=== PATIENT | female | born 1945 | race Caucasian/White ===

== ENCOUNTER 2018-01-11 20:35 | Observation (INO) | payer MEDICARE ==
[2018-01-11 21:03] LABS: Bilirubin Negative (Negative); Blood, Urine Negative (Negative); Clarity CLEAR (Clear); Glucose, Urine (Dipstick) >=1000 mg/dL (Negative); Leukocyte Negative (Negative); Nitrite Positive (Negative); Protein, Urine (Dipstick) Negative (Neg-Trace); Specific Gravity, Urine 1.028 (1.002-1.036); Urobilinogen 0.2 mg/dL (0.2-1.0); pH, Urine 5.5 (5.0-9.0)
[2018-01-11 21:06] LABS: Bacteria/HPF 3+ HPF (None Seen); Hyaline Casts/LPF 0-3 HYALINE CAST LPF (0-3 Hyaline); Pathc Cast-AUWi Flag 0.43 (0-2.49); RBC/HPF None Seen HPF (0-3); Squamous Epithelial 0-3 HPF (0-3); WBC/HPF 0-3 HPF (0-3)
[2018-01-11 22:19] LABS: #Eosinphils 0.2 thou/uL (0.0-0.7); #Lymphocytes 0.6 thou/uL (1.20-3.40); #Monocytes 0.7 thou/uL (0.11-0.59); #Neutrophils 8.6 thou/uL (1.40-6.50); %Basophils 0.3 % (0.0-1.0); %Eosinophils 1.6 % (0.0-10.0); %Lymphocytes 5.5 % (21.0-51.0); %Monocytes 7.2 % (0.0-10.0); %Neutrophils 85.5 % (42.0-75.0); Hemoglobin 13.6 g/dL (12.0-16.0); Mean Corpuscular HGB CONC 34.6 g/dL (32.0-36.0); Mean Corpuscular Hemoglobin 29.6 pg (27.0-31.0); Mean Corpuscular Volume 85.7 fL (78.0-98.0); Mean Platelet Volume 7.7 fL (7.4-10.4); Platelet Count 161 thou/uL (130-400); RBC Distribution Width 12.5 % (11.5-14.5); Red Blood Cell (RBC) Count 4.57 mill/uL (4.20-5.40)
[2018-01-11 22:34] LABS: ALT (SGPT) 25 U/L (8-55); AST (SGOT) 27 U/L (5-34); Alkaline Phosphatase 92 U/L (40-150); Anion Gap 14 mmol/L (10-20); BUN (Urea Nitrogen) 15 mg/dL (9.8-20.1); Bilirubin, Total 0.4 mg/dL (0.2-1.2); Calc. Creatinine Clearance 0 mL/min (70-130); Calcium 9.3 mg/dL (7.8-10.44); Carbon Dioxide 22 mmol/L (23-31); Chloride 110 mmol/L (98-107); Estimated GFR-MDRD 71; Globulin 2.4 g/dL (2.4-3.5); Glucose 130 mg/dL (83-110); Potassium 3.9 mmol/L (3.5-5.1); Protein, Total 6.4 g/dL (6.0-8.3); Sodium 142 mmol/L (136-145)
[2018-01-11 22:39] LABS: CKMB 6.5 ng/mL (0-6.6); Troponin I Less than 0.010 ng/mL (< 0.028)
--- NOTE | 2018-01-11 22:41 | RAD ---
PORTABLE AP CHEST X-RAY: 01/11/18 HISTORY: Chest pain. COMPARISON: 09/02/17. FINDINGS: Multilead right subclavian AICD device remains in place. Cardiac silhouette is magnified by projectio n but stable in size. The pulmonary vasculature is within normal limits. Lungs are clear. Vascular ca lcifications are seen in the thoracic aorta. 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 This is a stable finding. No other interval change. IMPRESSION: Stable chest without evidence of an acute cardiopulmonary process. POS: [facility]
[2018-01-11] MEDS ORDERED: Meropenem 2 GM in Sodium Chloride 0.9% 100 ML IVPB SCH (23:00)
[2018-01-12 00:48] LABS: Troponin I Less than 0.010 ng/mL (< 0.028)
[2018-01-12 00:56] VITALS: BMI 27.2
[2018-01-12] MEDS ORDERED: Nitroglycerin 0.4 MG TAB (25 Tab Bottle) SL PRN (01:03)
[2018-01-12] MEDS ORDERED: Mag-Al 1200 mg/1200 mg/30 ML UDCUP PO PRN (01:03)
[2018-01-12] MEDS: traMADol HCl 50 MG TAB PO PRN ×2 (01:40→09:08)
[2018-01-12 02:39] LABS: Lactic Acid 2.5 mmol/L (0.5-2.2)
[2018-01-12 03:33] LABS: Troponin I Less than 0.010 ng/mL (< 0.028)
[2018-01-12] MEDS: TROSPIUM 20 MG TABLET PO SCH ×2 (08:25→20:19)
[2018-01-12] MEDS: Meropenem 500 MG in Sodium Chloride 0.9% 100 ML IVPB SCH ×2 (08:26→15:49)
[2018-01-12] MEDS ORDERED: Pramipexole Di-HCl 1 MG TAB PO SCH (09:00)
[2018-01-12] MEDS ORDERED: Aspirin 81 mg Enteric Coated Tablet PO SCH (09:00)
[2018-01-12] MEDS ORDERED: Clopidogrel Bisulfate 75 MG TAB PO SCH (09:00)
[2018-01-12] MEDS ORDERED: busPIRone HCl 5 MG TAB PO SCH (09:00)
[2018-01-12] MEDS ORDERED: Gabapentin 300 MG CAP PO SCH (10:15)
[2018-01-12] MEDS: busPIRone HCl 10 MG TAB PO SCH ×2 (15:45→20:17)
--- NOTE | 2018-01-12 17:57 | HP ---
REASON FOR ADMISSION: Altered mental state, generalized aches and pain. HISTORY OF PRESENTING ILLNESS: The patient apparently was brought to emergency room after she was not herself at home. She was also complaining of shortness of breath with generalized body aches. She also had chest discomfort which was worse on palpation. The patient currently is oriented and complains of generalized body ache. She also states her urine smell odor was horrible. She has also been having increased frequency. Currently, he has no complaints of chest pain, but still has generalized aches and pains. The patient states this is normal for her and she takes gabapentin for it. It is just that the pains were worse and denies having taken any extra pills for the pain. No fever, cough, or expectoration at home. No complaints of palpitations, PND or orthopnea. PAST MEDICAL AND SURGICAL HISTORY: History of chronic pain syndrome, history of left brain benign tumor, anxiety disorder, depression, history of DVT in the lower extremities, nonischemic cardiomyopathy, AICD, IVC filter, hysterectomy, bilateral knee replacements, right hip replacement, right internal carotid artery, moderate stenosis, history of CVA with right hemiparesis, peripheral vascular disease, history of prior GI bleed, and colonoscopy. CURRENT MEDICATIONS: The patient is on Keppra 750 mg twice daily, Ultram p.r.n. for pain, gabapentin 600 mg daily, tolterodine 4 mg daily, Plavix 75 mg daily, Lasix 40 mg daily, Myrbetriq 25 mg daily, buspirone 15 mg 3 times daily, celecoxib 200 mg twice daily, rabeprazole 20 mg twice daily, pramipexole 1 mg twice daily, atorvastatin 20 mg p.o. q.p.m., aspirin 81 mg p.o. daily, K-Dur 10 mEq p.o. daily, Tylenol 650 mg twice daily. ALLERGIES: Patient has multiple allergies including SULFA, CLINDAMYCIN, NORCO, HYDROMORPHONE, LYRICA, MORPHINE, NALBUPHINE, [place], PENICILLIN, LYRICA, QUININE , SHELLFISH, SULFA. PERSONAL HISTORY: Does not abuse alcohol or drugs. No history of smoking. She ambulates with a walker. FAMILY HISTORY: Mother at the age of 97 years. Father of old age at the age of 85 years. REVIEW OF SYSTEMS: The following complete review of systems was negative, unless otherwise mentioned in the HPI or below: Constitutional: Weight loss or gain, ability to conduct usual activities. Skin: Rash, itching. Eyes: Double vision, pain. ENT/Mouth: Nose bleeding, neck stiffness, pain, tenderness. Cardiovascular: Palpitations, dyspnea on exertion, orthopnea. Respiratory: Shortness of breath, wheezing, cough, hemoptysis, fever or night sweats. Gastrointestinal: Poor appetite, abdominal pain, heartburn, nausea, vomiting, constipation, or diarrhea. Genitourinary: Urgency, frequency, dysuria, nocturia. Musculoskeletal: Pain, swelling. Neurologic/Psychiatric: Anxiety, depression. Allergy/Immunologic: Skin rash, bleeding tendency. CODE STATUS: DNR. This was discussed with patient at bedside. PHYSICAL EXAMINATION: GENERAL: The patient is a 72-year-old female who is currently not in any distress except for aches and pains. VITAL SIGNS: Blood pressure 170/76, pulse 78 per minute, respiratory rate 18 per minute, temperature 98.4 degrees Fahrenheit, saturating 96% on room air. NECK: Supple, no elevated JVD. HEENT: Eyes: Extraocular muscles intact. Pupils reacting to light. Oral cavity mucous membranes are moist. No exudates or congestion. CARDIOVASCULAR: S1 and S2 heard. Regular rhythm. RESPIRATORY: Air entry 1+ bilaterally. No rales or rhonchi. ABDOMEN: Soft, bowel sounds heard. No tenderness, rigidity or guarding. EXTREMITIES: No peripheral edema or calf tenderness. VASCULAR SYSTEM: Peripheral pulses 1+ bilateral, no ischemic ulcerations or gangrene. CENTRAL NERVOUS SYSTEM: No gross focal deficits noted. The patient moves all 4 extremities. PSYCHIATRIC: The patient is a bit anxious, otherwise no hallucinations or delusions. LABORATORY AND X-RAY FINDINGS: Echo done in 07/2016 was reviewed and showed an EF of 50%-55%. There was grade I/III diastolic dysfunction, RV systolic pressures were 41 mm on that. White count of 10, H&H 13 and 39, platelet count 161 with 85% neutrophils. Serum bicarbonate 22. Sodium 142, BUN 15, creatinine 0.7, glucose 130. Troponin x3 is negative. Liver enzymes are within normal limits. Albumin is 4. Chest x-ray done shows no acute cardiopulmonary process. UA is positive for nitrite with 3+ bacteria. CLINICAL IMPRESSION AND PLAN: The patient will be admitted to medical floor for acute encephalopathy, urinary tract infection, generalized body aches and pain. The patient has known history of chronic pain syndrome and is on multiple medications for the same. She also has restless leg syndrome, fibromyalgia and history of seizure disorder as well. We will continue all her home medication as before. The patient has been started on meropenem and will continue the same. We will obtain urine cultures and follow up on that. She is otherwise hemodynamically stable at present. PT, OT evaluations will be requested as well and the plan is for early mobilization. [facility]
[2018-01-12] MEDS: Acetaminophen 325 MG TAB PO SCH (20:18)
[2018-01-12] MEDS: levETIRAcetam 500 MG TAB PO SCH (20:18)
[2018-01-12] MEDS: Pramipexole Di-HCl 1 MG TAB PO SCH (20:19)
[2018-01-12] MEDS: CeleCOXIB 100 MG CAP PO SCH (20:19)
[2018-01-12] MEDS ORDERED: Tolterodine Tartrate LA 2 MG CAP PO SCH (21:00)
[2018-01-13] MEDS: Meropenem 500 MG in Sodium Chloride 0.9% 100 ML IVPB SCH ×3 (00:24→16:22)
[2018-01-13] MEDS: traMADol HCl 50 MG TAB PO PRN (00:27)
[2018-01-13] MEDS: Acetaminophen 325 MG TAB PO SCH ×2 (08:33→21:46)
[2018-01-13] MEDS: Atorvastatin Calcium 20 MG TAB PO SCH (08:33)
[2018-01-13] MEDS: busPIRone HCl 10 MG TAB PO SCH ×3 (08:33→21:46)
[2018-01-13] MEDS: Aspirin 81 mg Enteric Coated Tablet PO SCH (08:33)
[2018-01-13] MEDS: Clopidogrel Bisulfate 75 MG TAB PO SCH (08:33)
[2018-01-13] MEDS: CeleCOXIB 100 MG CAP PO SCH ×2 (08:34→21:00)
[2018-01-13] MEDS: Gabapentin 300 MG CAP PO SCH (08:34)
[2018-01-13] MEDS: levETIRAcetam 500 MG TAB PO SCH ×2 (08:35→21:48)
[2018-01-13] MEDS: Pramipexole Di-HCl 1 MG TAB PO SCH ×2 (08:36→21:49)
[2018-01-13] MEDS: TROSPIUM 20 MG TABLET PO SCH ×2 (08:36→21:49)
[2018-01-13] MEDS: Potassium Chloride 10 MEQ TAB PO SCH (08:36)
[2018-01-13] MEDS ORDERED: Tolterodine Tartrate LA 4 MG CAP PO SCH (09:00)
[2018-01-13] MEDS ORDERED: Furosemide 40 MG TAB PO SCH (09:00)
--- NOTE | 2018-01-13 11:30 | PDOC.PN ---
- Subjective Encounter Start Date: 01/13/18 Encounter Start Time: 08:15 Subjective: no sob or chest pain or body aches this am -: feels better, slept well, ate her breakfast - Objective MAR Reviewed: Yes Vital Signs & Weight: Vital Signs (12 hours) Temp Pulse Resp BP Pulse Ox 01/13/18 08:00 97.6 F 70 18 137/77 92 L 01/13/18 04:44 97.7 F 75 18 116/72 92 L Weight Weight 168 lb 12.8 oz I&O: 01/12/18 01/13/18 01/14/18 06:59 06:59 06:59 Intake Total 360 Balance 360 Result Diagrams: 01/11/18 21:02 01/11/18 21:02 Phys Exam - Physical Examination HEENT: PERRLA, moist MMs Neck: no JVD, supple Respiratory: no wheezing, no rales Cardiovascular: RRR, no significant murmur Gastrointestinal: soft, non-tender, positive bowel sounds Musculoskeletal: no edema, pulses present Neurological: non-focal, moves all 4 limbs Psychiatric: normal affect, A&O x 3 Dx/Plan (1) UTI (urinary tract infection) Status: Acute Qualifiers: Urinary tract infection type: acute cystitis Hematuria presence: without hematuria Qualified Code(s): N30.00 - Acute cystitis without hematuria (2) Chronic pain syndrome Code(s): G89.4 - CHRONIC PAIN SYNDROME Status: Chronic (3) Anxiety and depression Code(s): F41.9 - ANXIETY DISORDER, UNSPECIFIED; F32.9 - MAJOR DEPRESSIVE DISORDER, SINGLE EPISODE, UNSPECIFIED Status: Chronic (4) Coronary artery disease Code(s): I25.10 - ATHSCL HEART DISEASE OF [place] CORONARY ARTERY W/O ANG PCTRS Status: Chronic Qualifiers: Coronary Disease-Associated Artery/Lesion type: [place] artery [place] vs. transplanted heart: [place] heart Associated angina: without angina Qualified Code(s): I25.10 - Atherosclerotic heart disease of [place] coronary artery without angina pectoris (5) History of CVA with residual deficit Code(s): I69.30 - UNSPECIFIED SEQUELAE OF CEREBRAL INFARCTION Status: Chronic Comment: right hemiparesis (6) Hypertension Code(s): I10 - ESSENTIAL (PRIMARY) HYPERTENSION Status: Chronic Qualifiers: Hypertension type: essential hypertension (7) Microcytic anemia Code(s): D50.9 - IRON DEFICIENCY ANEMIA, UNSPECIFIED Status: Chronic (8) Metabolic encephalopathy Code(s): G93.41 - METABOLIC ENCEPHALOPATHY Status: Resolved Comment: at baseline - Plan await urine culture results -: continue meropenem for now until above is available -: non specific body aches are resolved -: to ambulate with PT and rw today -: dc plan in am * . Review of Systems - Medications/Allergies Allergies/Adverse Reactions: Allergies Allergy/AdvReac Type Severity Reaction Status Date / Time hydromorphone HCl Allergy Intermediate Rash Verified 03/31/16 17:03 [From Dilaudid] clindamycin Allergy Rash Verified 03/31/16 17:03 morphine Allergy Hives Verified 03/31/16 17:03 nalbuphine HCl [From Nubain] Allergy Rash Verified 03/31/16 17:03 penicillin G Allergy Hives Verified 03/31/16 17:03 pregabalin [From Lyrica] Allergy Rash Verified 03/31/16 17:03 quinine [Quinine] Allergy Rash Verified 03/31/16 17:03 sulfamethoxazole Allergy Rash Verified 03/31/16 17:03 [From Bactrim] trimethoprim [From Bactrim] Allergy Rash Verified 03/31/16 17:03 Medications: Current Medications Acetaminophen (Tylenol) 650 mg PO BID [facility] Last Admin: 01/13/18 08:33 Dose: 650 mg Al Hydroxide/Mg Hydroxide (Maalox) 30 ml PO Q6H PRN PRN Reason: Heartburn or Indigestion Aspirin (Ecotrin) 81 mg PO DAILY [facility] Last Admin: 01/13/18 08:33 Dose: 81 mg Atorvastatin Calcium (Lipitor) 20 mg PO DAILY [facility] Last Admin: 01/13/18 08:33 Dose: 20 mg Buspirone HCl (Buspar) 15 mg PO TID [facility] Last Admin: 01/13/18 08:33 Dose: 15 mg Celecoxib (Celebrex) 200 mg PO BID [facility] Last Admin: 01/13/18 08:34 Dose: 200 mg Clopidogrel Bisulfate (Plavix) 75 mg PO DAILY [facility] Last Admin: 01/13/18 08:33 Dose: 75 mg Gabapentin (Neurontin) 600 mg PO DAILY [facility] Last Admin: 01/13/18 08:34 Dose: 600 mg Meropenem 500 mg/ Sodium (Chloride) 100 mls @ 200 mls/hr IVPB 0800,1600,2359 [facility] Last Admin: 01/13/18 08:32 Dose: 100 mls Levetiracetam (Keppra) 750 mg PO BID [facility] Last Admin: 01/13/18 08:35 Dose: 750 mg Mirabegron (Myrbetriq Er) 25 mg PO DAILY [facility] Last Admin: 01/13/18 08:36 Dose: 25 mg Nitroglycerin (Nitrostat) 0.4 mg SL Q5MIN PRN PRN Reason: Chest Pain Pantoprazole Sodium (Protonix) 40 mg PO BID [facility] Last Admin: 01/13/18 08:36 Dose: 40 mg Potassium Chloride (Klor-Con 10) 10 meq PO DAILY [facility] Last Admin: 01/13/18 08:36 Dose: 10 meq Pramipexole Dihydrochloride (Mirapex) 1 mg PO BID [facility] Last Admin: 01/13/18 08:36 Dose: 1 mg Tramadol HCl (Ultram) 50 mg PO TIDPRN PRN PRN Reason: Pain Last Admin: 01/13/18 00:27 Dose: 50 mg Trospium (Trospium) 20 mg PO BID [facility] Last Admin: 01/13/18 08:36 Dose: 20 mg
[2018-01-14] MEDS: Meropenem 500 MG in Sodium Chloride 0.9% 100 ML IVPB SCH ×2 (00:40→09:16)
[2018-01-14] MEDS: levETIRAcetam 500 MG TAB PO SCH (09:17)
[2018-01-14] MEDS: Pramipexole Di-HCl 1 MG TAB PO SCH (09:19)
[2018-01-14] MEDS: Gabapentin 300 MG CAP PO SCH (09:19)
[2018-01-14] MEDS: busPIRone HCl 10 MG TAB PO SCH (09:20)
[2018-01-14] MEDS: CeleCOXIB 100 MG CAP PO SCH (09:20)
[2018-01-14] MEDS: TROSPIUM 20 MG TABLET PO SCH (09:21)
[2018-01-14] MEDS: Acetaminophen 325 MG TAB PO SCH ×2 (09:22→10:27)
[2018-01-14] MEDS: Atorvastatin Calcium 20 MG TAB PO SCH (09:22)
[2018-01-14] MEDS: Aspirin 81 mg Enteric Coated Tablet PO SCH (09:22)
[2018-01-14] MEDS: Potassium Chloride 10 MEQ TAB PO SCH (09:22)
[2018-01-14] MEDS: Clopidogrel Bisulfate 75 MG TAB PO SCH (09:22)
[2018-01-14 12:19] VITALS: BP 149/81; TEMP 98.2
--- NOTE | 2018-01-14 15:01 | PDOC.PN ---
- Subjective Encounter Start Date: 01/14/18 Encounter Start Time: 07:00 Subjective: has gas pains with mild distention, no nausea, has finished her breakfast - Objective MAR Reviewed: Yes Vital Signs & Weight: Vital Signs (12 hours) Temp Pulse Resp BP Pulse Ox 01/14/18 12:18 98.2 F 75 20 149/81 H 92 L 01/14/18 08:00 97.9 F 76 18 93 L 01/14/18 07:28 97.9 F 76 18 162/88 H 93 L Weight Weight 168 lb 12.8 oz I&O: 01/13/18 01/14/18 01/15/18 06:59 06:59 06:59 Intake Total 360 1150 360 Balance 360 1150 360 Result Diagrams: 01/11/18 21:02 01/11/18 21:02 Phys Exam - Physical Examination HEENT: PERRLA, moist MMs Neck: no JVD, supple Respiratory: no wheezing, no rales Cardiovascular: RRR, no significant murmur Gastrointestinal: soft, non-tender, positive bowel sounds Musculoskeletal: no edema, pulses present Neurological: non-focal, moves all 4 limbs Psychiatric: normal affect, A&O x 3 Dx/Plan (1) UTI (urinary tract infection) Status: Acute Qualifiers: Urinary tract infection type: acute cystitis Hematuria presence: without hematuria Qualified Code(s): N30.00 - Acute cystitis without hematuria (2) Chronic pain syndrome Code(s): G89.4 - CHRONIC PAIN SYNDROME Status: Chronic (3) Anxiety and depression Code(s): F41.9 - ANXIETY DISORDER, UNSPECIFIED; F32.9 - MAJOR DEPRESSIVE DISORDER, SINGLE EPISODE, UNSPECIFIED Status: Chronic (4) Coronary artery disease Code(s): I25.10 - ATHSCL HEART DISEASE OF [place] CORONARY ARTERY W/O ANG PCTRS Status: Chronic Qualifiers: Coronary Disease-Associated Artery/Lesion type: [place] artery [place] vs. transplanted heart: [place] heart Associated angina: without angina Qualified Code(s): I25.10 - Atherosclerotic heart disease of [place] coronary artery without angina pectoris (5) History of CVA with residual deficit Code(s): I69.30 - UNSPECIFIED SEQUELAE OF CEREBRAL INFARCTION Status: Chronic Comment: right hemiparesis (6) Hypertension Code(s): I10 - ESSENTIAL (PRIMARY) HYPERTENSION Status: Chronic Qualifiers: Hypertension type: essential hypertension (7) Microcytic anemia Code(s): D50.9 - IRON DEFICIENCY ANEMIA, UNSPECIFIED Status: Chronic (8) Metabolic encephalopathy Code(s): G93.41 - METABOLIC ENCEPHALOPATHY Status: Resolved Comment: at baseline - Plan hemostable -: cipro based on cultures -: dc pt home -: to amb in hallway prior to dc * . Review of Systems - Medications/Allergies Allergies/Adverse Reactions: Allergies Allergy/AdvReac Type Severity Reaction Status Date / Time hydromorphone HCl Allergy Intermediate Rash Verified 03/31/16 17:03 [From Dilaudid] clindamycin Allergy Rash Verified 03/31/16 17:03 morphine Allergy Hives Verified 03/31/16 17:03 nalbuphine HCl [From Nubain] Allergy Rash Verified 03/31/16 17:03 penicillin G Allergy Hives Verified 03/31/16 17:03 pregabalin [From Lyrica] Allergy Rash Verified 03/31/16 17:03 quinine [Quinine] Allergy Rash Verified 03/31/16 17:03 sulfamethoxazole Allergy Rash Verified 03/31/16 17:03 [From Bactrim] trimethoprim [From Bactrim] Allergy Rash Verified 03/31/16 17:03
[2018-01-14] MEDS ORDERED: Ciprofloxacin 500 MG TAB PO SCH (20:00)
--- NOTE | 2018-01-16 20:51 | DIS ---
DATE OF ADMISSION: 01/12/2018 DATE OF DISCHARGE: 01/14/2018 DISCHARGE DISPOSITION: To home. PRIMARY DISCHARGE DIAGNOSES: Urinary tract infection, resolving; acute encephalopathy on arrival, re solved. SECONDARY DISCHARGE DIAGNOSES: Chronic pain syndrome; anxiety; depression; coronary artery disease; history of cerebrovascular accident with right hemiparesis, mild; hypertension; chronic anemia, which is microcytic. PROCEDURES DONE DURING HOSPITALIZATION: Chest x-ray done showed stable chest without acute cardiopul monary abnormalities. Urine culture grew Klebsiella 10,000-25,000 colony forming units per mL, sensi tive to quinolones, but allergic to PENICILLINS. Blood cultures x2 no growth. White count of 10 wit h 85% neutrophils on admission. BUN 15, creatinine 0.7. Troponin x3 negative. DISCHARGE MEDICATIONS: Ciprofloxacin 500 mg p.o. twice daily for another 5 days, aspirin 81 mg p.o. daily, Lipitor 20 mg p.o. daily, buspirone 15 mg p.o. 3 times daily, celecoxib 200 mg p.o. twice isrrael y, Plavix 75 mg p.o. daily, Lasix 40 mg p.o. daily, gabapentin 600 mg p.o. daily, Keppra 750 mg p.o. twice daily, Myrbetriq extended release 25 mg p.o. daily, K-Dur extended release 10 mEq p.o. daily, M irapex 1 mg p.o. twice daily, rabeprazole 20 mg p.o. twice daily, tolterodine extended release 4 mg p .o. daily. ALLERGIES: Multiple agents including DILAUDID, CLINDAMYCIN, MORPHINE, NALBUPHINE, PENICILLIN, LYRICA , QUININE, SULFA. DISCHARGE PLAN: The patient to follow up with primary care physician in 1 week. BRIEF COURSE DURING HOSPITALIZATION: The patient initially was brought to hospital for altered menta l state with generalized aches and pain. She was found to have had urinary tract infection. The pat ient was gently hydrated. Twenty-four hours into hospitalization, patient's encephalopathy completel y resolved. Her generalized aches and pains have also resolved. Her urine cultures grew Klebsiella, which was sensitive to quinolones. Prior to discharge, she is ambulating with PT. She has remained hemodynamically stable. Please see a [id number] documentation on [facility] for the day of discharg e. The patient needs to complete her ciprofloxacin for another 5 days.
--- NOTE | 2018-02-03 15:07 | EKG ---
Test Reason : Blood Pressure : / mmHG Vent. Rate : 080 BPM Atrial Rate : 080 BPM P-R Int : 104 ms QRS Dur : 134 ms QT Int : 460 ms P-R-T Axes : 044 174 058 degrees QTc Int : 530 ms Atrial-sensed ventricular-paced rhythm Abnormal ECG Confirmed by RAMAN ESTES DO ([id number]), restaurant expeditor TERESE ESPOSITO ([id number]) on 02/03/2018 3:07:23 PM Referred By: Confirmed By:RAMAN ESTES DO
== END 2018-01-14 14:12 | disposition home or self-care (01) ==
LOC: ERS 20:35 → T4-A 23:00 → INTOOBSV 23:00
PROVIDERS: ADMIT Hospitalist; ATTEND Hospitalist
DX: N30.00 Acute cystitis without hematuria (principal); G93.41 Metabolic encephalopathy; I42.9 Cardiomyopathy, unspecified; I69.351 Hemiplegia and hemiparesis following cerebral infarction affecting right dominant side; B96.1 Klebsiella pneumoniae [K. pneumoniae] as the cause of diseases classified elsewhere; G89.4 Chronic pain syndrome; F41.9 Anxiety disorder, unspecified; F32.9 Major depressive disorder, single episode, unspecified; Z95.810 Presence of automatic (implantable) cardiac defibrillator; Z86.718 Personal history of other venous thrombosis and embolism; Z79.01 Long term (current) use of anticoagulants; I10 Essential (primary) hypertension; D50.9 Iron deficiency anemia, unspecified; G25.81 Restless legs syndrome; M79.7 Fibromyalgia; E78.00 Pure hypercholesterolemia, unspecified
CPT/HCPCS: 51701; 71045; 80053; 82553; 82962; 83605 ×2; 84484 ×3; 85025; 87040; 87077; 87086; 87186; 93005; 96361; 96365; 97139 ×4; 99285; G8978; G8979; 36415; 36416; 81003; 81015; A4353; J2185; J7050

== ENCOUNTER 2019-02-06 12:32 | Inpatient (IN) | payer MEDICARE ==
--- NOTE | 2019-02-06 13:08 | RAD ---
XR Chest 1 View Portable History: Altered mental status Comparison: Radiograph 2018 Findings: Heart size is enlarged. Mild point venous congestion. No pneumothorax. No significant effus ion. No acute osseous abnormality. Similar appearance of AICD/pacer Impression: Chronic findings. No acute intrathoracic abnormality.
[2019-02-06 13:16] LABS: #Eosinphils 0.2 thou/uL (0.0-0.7); #Lymphocytes 1.5 thou/uL (1.20-3.40); #Monocytes 0.8 thou/uL (0.11-0.59); #Neutrophils 7.2 thou/uL (1.40-6.50); %Basophils 0.2 % (0.0-1.0); %Eosinophils 1.8 % (0.0-10.0); %Lymphocytes 15.2 % (21.0-51.0); %Monocytes 8.6 % (0.0-10.0); %Neutrophils 74.3 % (42.0-75.0); Hemoglobin 14.1 g/dL (12.0-16.0); Mean Corpuscular HGB CONC 33.9 g/dL (32.0-36.0); Mean Corpuscular Hemoglobin 28.5 pg (27.0-31.0); Mean Corpuscular Volume 84.1 fL (78.0-98.0); Mean Platelet Volume 7.3 fL (7.4-10.4); Platelet Count 216 thou/uL (130-400); RBC Distribution Width 13.5 % (11.5-14.5); Red Blood Cell (RBC) Count 4.95 mill/uL (4.20-5.40); White Blood Cell (WBC) Count 9.7 thou/uL (4.8-10.8)
[2019-02-06 13:24] LABS: PTT 30.2 SEC (22.9-36.1)
[2019-02-06 13:25] LABS: INR-International Normal Ratio 0.9; Prothrombin Time 12.4 SEC (12.0-14.7)
[2019-02-06 13:26] LABS: D-Dimer Test 0.91 *mcg/mL (0.27-0.43)
[2019-02-06 13:37] LABS: Acetaminophen Less than 6.0 mcg/mL (10.0-30.0); Alcohol Less than 10 mg/dL (Less than 10); Salicylate Less than 8.0 mg/dL (15.0-30.0)
[2019-02-06 13:39] LABS: ALT (SGPT) 13 U/L (8-55); AST (SGOT) 12 U/L (5-34); Alkaline Phosphatase 86 U/L (40-150); Anion Gap 11 mmol/L (10-20); BUN (Urea Nitrogen) 17 mg/dL (9.8-20.1); Bilirubin, Total 0.4 mg/dL (0.2-1.2); CK (CPK) 37 U/L (29-168); Calc. Creatinine Clearance 0 mL/min (70-130); Calcium 9.4 mg/dL (7.8-10.44); Carbon Dioxide 26 mmol/L (23-31); Chloride 104 mmol/L (98-107); Estimated GFR-MDRD 76; Globulin 2.6 g/dL (2.4-3.5); Glucose 64 mg/dL (83-110); Potassium 4.1 mmol/L (3.5-5.1); Protein, Total 6.6 g/dL (6.0-8.3); Sodium 137 mmol/L (136-145)
[2019-02-06 14:42] LABS: Amphetamine Not Detected (NotDetected); Barbiturates Screen Not Detected (NotDetected); Benzodiazepine Screen Not Detected (NotDetected); Cocaine Metabolite Screen Not Detected (NotDetected); Medtox Control Line Valid? VALID (VALID); Medtox Reader # READER 4; Methadone Not Detected (NotDetected); Methamphetamine Not Detected (NotDetected); Opiate Screen Detected (NotDetected); Oxycodone Screen Not Detected (NotDetected); Phencyclidine (PCP) Not Detected (NotDetected); THC/Cannabinoid Screen Not Detected (NotDetected); Tricyclic Screen Not Detected (NotDetected)
--- NOTE | 2019-02-06 15:20 | CT ---
CT BRAIN WITHOUT CONTRAST: HISTORY: Altered mental status. Dizziness. COMPARISON: 11/15/2017 FINDINGS: Postop changes in the left parietal region, changes of cortical atrophy, and chronic small vessel isc hemic disease are again seen. The ventricular size is stable, and the basilar cisterns are patent. No evidence of acute infarct, hemorrhage, midline shift, or abnormal extraaxial fluid collections is seen. No acute osseous abnormalities are seen. There is mucosal disease in the paranasal sinuses. IMPRESSION: Stable examination. No CT evidence of acute intracranial process. POS: [facility]
[2019-02-06] MEDS ORDERED: Ondansetron PF 4 MG/2 ML Vial ONE (16:14)
[2019-02-06] MEDS ORDERED: Acetaminophen 325 MG TAB ONE (16:22)
[2019-02-06] MEDS ORDERED: ISOVUE-370 76%-LOCM 1 ML ONE (16:29)
[2019-02-06] MEDS ORDERED: Senokot S 8.6-50 MG TAB PO PRN (17:03)
[2019-02-06] MEDS ORDERED: Bisacodyl 10 MG SUPP PR PRN (17:03)
[2019-02-06] MEDS ORDERED: Ondansetron PF 4 MG/2 ML Vial IVP PRN (17:03)
[2019-02-06] MEDS ORDERED: Ondansetron ODT 4 MG TAB PO PRN (17:03)
--- NOTE | 2019-02-06 17:25 | CT ---
CT angiography of chest performed with intravenous contrast enhancement with 3-D reconstructions HISTORY: Syncope. Elevated d-dimer. Bradycardia. COMPARISON: 10/29/2015 study. FINDINGS: The lungs are clear of any infiltrative process. No pleural effusions are identified. Mild chronic lung changes are seen. There is nodularity to the right lobe of the thyroid gland. No significant mediastinal adenopathy. Th e thoracic aorta is normal in caliber. There is fair pulmonary artery opacification, some mixing with less well-opacified blood makes it dif ficult to exclude peripheral emboli but no proximally embolus is seen. There are arthritic changes and scoliosis to the spine. IMPRESSION: No CT evidence for pulmonary embolus.
[2019-02-06 18:02] VITALS: BMI 29.3
[2019-02-07] MEDS: Acetaminophen 325 MG TAB PO PRN ×4 (00:45→21:00)
[2019-02-07] MEDS ORDERED: Clopidogrel Bisulfate 75 MG TAB PO SCH (09:00)
[2019-02-07] MEDS ORDERED: Aspirin 81 mg Enteric Coated Tablet PO SCH (09:00)
[2019-02-07] MEDS ORDERED: levETIRAcetam 500 MG TAB PO SCH (09:00)
[2019-02-07] MEDS ORDERED: BUSPIRONE HCL 5 MG PO SCH (09:00)
[2019-02-07] MEDS ORDERED: POTASSIUM CHLORIDE PO SCH (09:00)
[2019-02-07] MEDS ORDERED: RABEPRAZOLE SODIUM PO SCH (09:00)
[2019-02-07] MEDS: Aspirin 81 mg Enteric Coated Tablet PO SCH (09:17)
[2019-02-07] MEDS: Potassium Chloride 10 MEQ TAB PO SCH (09:18)
[2019-02-07] MEDS: Furosemide 40 MG TAB PO SCH (09:18)
[2019-02-07] MEDS: busPIRone HCl 5 MG TAB PO SCH ×3 (09:18→20:59)
[2019-02-07] MEDS: Clopidogrel Bisulfate 75 MG TAB PO SCH (09:18)
[2019-02-07] MEDS: Enoxaparin Sodium 40 MG/0.4 ML SYRINGE SC SCH (09:18)
[2019-02-07] MEDS: OXcarbazepine 150 MG TAB PO SCH ×2 (09:18→20:59)
--- NOTE | 2019-02-07 09:51 | HP ---
PRIMARY CARE PHYSICIAN: Heath Richards MD CHIEF COMPLAINT: Low heart rate of 35 and mental status change. HISTORY OF PRESENT ILLNESS: A 73-year-old female with past medical history significant for seizure disorder, left brain benign tumor, prior CVA with residual right-sided weakness, who [facility] due to bradycardia with rate down to 35 as well as altered mental sensation of transient loss of consciousness. The patient's spouse reported that he saw the patient earlier today and she was fine, only to be told few minutes later that they were sending her to the hospital due to low heart rate. The patient reported having headache since about 2 weeks as well as dizziness. She denied chest pain or palpitations. While in the emergency room, it was noticed that the patient has had episodes of transient staring blank stares of about 30 minutes with spontaneous return of mental status. There has been no history of fever. The patient, however, admitted to nausea, but denied vomiting. She also denied abdominal pain, dysuria, or worsening shortness of breath. Headache is rated at 8/10 and is on the forehead and right side of head. The patient has history of absence seizures, for which she is on Keppra 750 mg b.i.d. Spouse reported that she used to be on 1 g b.i.d., but was found to have elevated levels, hence she was cut back to 750 by her usual die mounter. The patient with prior history of DVT, was found to have elevation in D-dimer, hence CT angio was ordered, but this could not be completed due to IV access issues. Since presentation to the emergency room, blood pressures have been above and mostly demand pacing as she has a pacemaker. At baseline, the patient moves around in a wheelchair due to chronic debility. She also is supposed to have the right upper limb sling due to osteoarthritis and previous fracture. PAST MEDICAL HISTORY: 1. Prior CVA with right-sided hemiparesis. 2. Nonischemic cardiomyopathy, status post AICD placement. 3. DVT in lower extremity, status post IVC filter. 4. Severe osteoarthritis, status post multiple knee replacements. 5. Peripheral vascular disease, status post PTCA of right lower extremity. 6. Prior history of GI bleeding. 7. Chronic pain syndrome. 8. Left brain benign tumor. 9. Anxiety disorder. 10. Depression. 11. Chronic debilitation. 12. History of frequent falls. 13. longterm resident since about 4 weeks. PAST SURGICAL HISTORY: 1. AICD placement. 2. IVC filter placement. 3. Hysterectomy. 4. Bilateral knee replacement. 5. Right hip replacement. 6. Stent placement to right lower extremity. 7. Colonoscopy. FAMILY HISTORY: Reviewed, but noncontributory. Of note, both parents at old age. SOCIAL HISTORY: The patient currently lives in [facility] since about 4 weeks due to frequent falls. Denied smoking, alcohol, or recreational drug use. ALLERGIES: 1. HYDROMORPHONE. 2. CLINDAMYCIN. 3. MORPHINE. 4. NALBUPHINE. 5. PENICILLIN. 6. BACTRIM. 7. QUININE. 8. PREGABALIN. HOME MEDICATIONS: This could not be ascertained at this time. However, from prior hospitalization, the patient is on the followin. Keppra 750 mg p.o. b.i.d. 2. Buspirone 15 mg p.o. t.i.d. 3. Tolterodine tartrate (Detrol LA) 4 mg p.o. daily. 4. Rabeprazole sodium 1 tablet p.o. b.i.d. 5. Pramipexole 1 mg p.o. b.i.d. 6. Potassium chloride 1 capsule p.o. daily. 7. Myrbetriq 1 tablet p.o. daily. 8. Gabapentin 1 tablet p.o. daily. 9. Furosemide 40 mg p.o. daily. 10. Plavix 1 tablet p.o. daily. 11. Celecoxib mg p.o. b.i.d. 12. Lipitor 20 mg p.o. daily. 13. Aspirin 1 tablet p.o. daily. 14. Acetaminophen b.i.d. The doses and medications could not be ascertained at this time. [facility] to get updated med list. REVIEW OF SYSTEMS: 12-point review of systems performed was negative other than pertinent positives and negatives included in the history of present illness. PHYSICAL EXAMINATION: VITAL SIGNS: Initial vitals showed blood pressure of 132/62, pulse of 62, respiratory rate of 20, SpO2 of 97 on room air, and temperature of 98. Most recent vitals showed blood pressure 147/75, pulse 66, respiratory rate 20, and SpO2 of 98% on room air. GENERAL: Elderly female, in mild painful distress. Afebrile. Anicteric. Acyanotic. HEENT: Normocephalic, atraumatic. Pupils are reacting to light. Oral mucosa is moist. NECK: Supple with mild posterior neck tenderness. Range of motion is mildly reduced. There are no masses or lymphadenopathy appreciated. CARDIOVASCULAR: Regular rhythm and rate. Normal heart sounds 1 and 2. RESPIRATORY: Fair air entry bilaterally with no obvious crackles, rhonchi, or use of accessory muscles. GI: Full, soft, nontender, nondistended with normal bowel sounds. EXTREMITIES: No obvious erythema or edema appreciated in the lower extremities. Mild flexion deformity of right upper extremity noted. Scars of prior knee replacement noted as well. Distal pulses are palpable. 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 The patient is mildly slow in mentation. Cranial nerves 2 through 12 are grossly intact except right facial nerve palsy, upper motor neuron type. Power is 5-/5 left limbs and 1 to 2 right limbs. DIAGNOSTIC DATA: CBC showed WBC count of 9.7, hemoglobin of 14.4, MCV of 84.1, and platelets of 216. Coagulation panel showed PT 12.4, INR 0.9, and PTT 30.2. D-dimer 0.91. BMP showed sodium 137, potassium 4.1, chloride 104, CO2 of 26, BUN 17, creatinine 0.75, glucose 64, calcium 9.4, total bilirubin 0.4, AST 12, ALT 13, alkaline phosphatase 86, total protein 6.6, albumin 4.0, and globulin 2.6. Cardiac markers showed CK of 37, troponin of 0.010, and BNP of 79.4. TSH is 0.919. Toxicologies showed salicylates less than 8.0, acetaminophen less than 6.0, and alcohol less than 10. Urine drug screen was positive for opiates, but otherwise negative. EKG performed x2 showed demand pacing and V-paced rhythm with rates of 61 and 73. No acute changes were noted. Chest x-ray showed enlarged heart with mild venous congestion, but no pneumothorax, effusion, or acute osseous abnormality. CT scan of the brain showed postoperative changes in the left parietal region, changes of cortical atrophy as well as chronic small-vessel ischemic disease. Ventricular size is stable and the basilar cisterns are patent. There was no evidence of acute infarct, hemorrhage, midline shift, or abnormal extra-axial fluid collection. ASSESSMENT: 1. Transient bradycardia with heart rate down to 35. 2. Frequent breakthrough absent seizures. 3. Headache. 4. Dizziness: May be related to seizures as reported that she usually have dizziness before her seizures. It may also be related to significant bradycardia. 5. Prior history of brain tumor. CT scan was unremarkable and showed no acute changes. 6. Elevated D-dimer: Concerning for VTE. The patient is not short of breath, however, with bradycardia, CT angio is being planned to rule out pulmonary embolism. PLAN: 1. We will admit the patient for observation. 2. We get AICD interrogation. 3. We will also rule out acute myocardial infarction with serial troponin. 4. We will also get Keppra levels. 5. We will consult Neurology to evaluate the patient's recurrent seizures to see if those augmentation will be appropriate. 6. Code status: Do not resuscitate. 7. Spouse is the surrogate decision maker. Job ID: [id number]
--- NOTE | 2019-02-07 10:51 | PDOC.HOSPP ---
- Subjective Encounter Date: 02/07/19 Encounter Time: 10:48 Subjective: 73 y/o female with prior brain tumor s/p resection, prior CVA with residual right sided weakness, seizure disorder, NICM s/p AICD admitted due to severe bradycardia with rate of 35 as well as recurrent absent seizures associated with headaches and dizziness. Complaining of dizziness still but headaches are better. No nausea or vomting. Yet to be seen by Neuro and cardiology. Remained afebrile. - Objective Vital Signs & Weight: Vital Signs (12 hours) Temp Pulse Resp BP Pulse Ox 02/07/19 07:35 97.6 F 70 16 137/95 H 97 02/07/19 04:00 97.5 F L 68 16 106/66 94 L 02/07/19 00:00 75 18 118/60 95 Weight Weight 160 lb 6 oz I&O: 02/06/19 02/07/19 02/08/19 06:59 06:59 06:59 Intake Total 240 300 Output Total 300 Balance -60 300 Result Diagrams: 02/06/19 13:00 02/06/19 13:00 ROS - Medication Medications: Active Medications Generic Name Dose Route Start Last Admin Trade Name Freq PRN Reason Stop Dose Admin Acetaminophen 650 mg 02/06/19 17:03 02/07/19 09:19 Tylenol PO 650 mg Q4H PRN Administration Headache/Fever/Mild Pain (1-3) Aspirin 81 mg 02/07/19 09:00 02/07/19 09:17 Ecotrin PO 81 mg DAILY CRISPIN Administration Buspirone HCl 5 mg 02/07/19 09:00 02/07/19 09:18 Buspar PO 5 mg TID CRISPIN Administration Clopidogrel Bisulfate 75 mg 02/07/19 09:00 02/07/19 09:18 Plavix PO 75 mg DAILY CRISPIN Administration Enoxaparin Sodium 40 mg 02/07/19 09:00 02/07/19 09:18 Lovenox SC 40 mg 0900 CRISPIN Administration Furosemide 40 mg 02/07/19 09:00 02/07/19 09:18 Lasix PO 40 mg DAILY CRISPIN Administration Levetiracetam 1,000 mg 02/07/19 09:00 02/07/19 09:18 Keppra PO 1,000 mg BID CRISPIN Administration Mirabegron 25 mg 02/07/19 09:00 02/07/19 09:18 Myrbetriq Er PO 25 mg DAILY CRISPIN Administration Oxcarbazepine 150 mg 02/07/19 09:00 02/07/19 09:18 Trileptal PO 150 mg BID CRISPIN Administration Pantoprazole Sodium 40 mg 02/07/19 09:00 02/07/19 09:18 Protonix PO 40 mg BID CRISPIN Administration Potassium Chloride 10 meq 02/07/19 09:00 02/07/19 09:18 Klor-Con 10 PO 10 meq DAILY CRISPIN Administration Sodium Chloride 10 ml 02/07/19 09:00 02/07/19 09:19 Flush - Normal Saline IVF 10 ml Q12HR CRISPIN Administration - Exam awake alert Eye: anicteric sclera ENT: normocephalic atraumatic, moist mucosa Neck: no JVD Heart: RRR, murmur present Heart - other findings: soft systolic murmur Respiratory: no ronchi Respiratory - other findings: fair air entry bilaterally Gastrointestinal: soft, non-tender, non-distended, normal bowel sounds Extremities: no cyanosis, no edema Neurological - other findings: Right facial nerves palsy UMNT and right hemiparesis noted Psychiatric: A&O x 3 Psychiatric - other findings: emotionally labile Hosp A/P (1) Recurrent seizures Code(s): G40.909 - EPILEPSY, UNSP, NOT INTRACTABLE, WITHOUT STATUS EPILEPTICUS Status: Acute (2) Hemiparesis affecting right side as late effect of stroke Code(s): I69.351 - HEMIPLGA FOLLOWING CEREBRAL INFRC AFF RIGHT DOMINANT SIDE Status: Acute (3) Gait instability Code(s): R26.81 - UNSTEADINESS ON FEET Status: Acute (4) Bradycardia Code(s): R00.1 - BRADYCARDIA, UNSPECIFIED Status: Acute (5) Dizziness Code(s): R42 - DIZZINESS AND GIDDINESS Status: Acute (6) Headache Code(s): R51 - HEADACHE Status: Acute (7) NICM (nonischemic cardiomyopathy) Code(s): I42.8 - OTHER CARDIOMYOPATHIES Status: Acute - Plan Increase keppra to 100 bid. Start meclizine 25 tid prn for dizziness Awaiting report of AICD interrogation. Awaiting cardiology and Neurology input. Continue home medications.
[2019-02-07] MEDS: Meclizine HCl 25 MG TAB PO PRN ×2 (12:16→20:59)
--- NOTE | 2019-02-07 20:16 | CON ---
DATE OF CONSULTATION: 02/07/2019 REASON FOR CONSULTATION: Bradycardia. HISTORY OF PRESENT ILLNESS: Ms. Solitario is a 73-year-old woman, who recently was presented with weakness and fatigue. She also appeared to have a seizure. She was found to be bradycardic with heart rate in the 30s. This tracing could not be found. She does have an ICD with backup pacing. This is a second ICD. Her ICD was interrogated and showed the lowest heart rate present was 60, which is the lower rate limit. Denies syncope, presyncope, or associated symptoms. PAST MEDICAL HISTORY: Previous CVA, nonischemic cardiomyopathy, osteoarthritis, PAD, previous GI bleed, benign brain tumor, ICD placement, IVC filter placement, hysterectomy, hip replacement, colonoscopy. ALLERGIES: CLINDAMYCIN, MORPHINE, PENICILLIN, BACTRIM, QUININE. HOME MEDICATIONS: Include, 1. Keppra. 2. Buspirone. 3. Potassium. 4. Myrbetriq. 5. Gabapentin. 6. Lasix. 7. Plavix. 8. Lipitor. 9. Aspirin. REVIEW OF SYSTEMS: A 10-point review of systems is reviewed as above, otherwise negative. PHYSICAL EXAMINATION: GENERAL: Patient is a pleasant 73-year-old, who is in no acute distress. The patient appears their stated age. Mildly slurred speech. VITAL SIGNS: Blood pressure 118/67, pulse 69, and temperature 97.7. NEUROLOGIC: The patient is alert and oriented x3 with no focal neurologic deficits. HEENT: Sclerae without icterus. Mouth has moist mucous membranes with normal pallor. NECK: No JVD. Carotid upstroke brisk. No bruits bilaterally. LUNGS: Clear to auscultation with unlabored respirations. BACK: No scoliosis or kyphosis. CARDIAC: Regular rate and rhythm with normal S1 and S2. No S3 or S4 noted. No significant rubs, murmurs, thrills, or gallops noted throughout the precordium. PMI is not displaced. There is no parasternal heave. ABDOMEN: Soft, nontender, nondistended. No peritoneal signs present. No hepatosplenomegaly. No abnormal striae. EXTREMITIES: 2+ femoral and 2+ dorsalis pedis pulses. No cyanosis, clubbing, or edema. SKIN: No gross abnormalities. PERTINENT LABORATORY DATA: Hemoglobin 14.1. Troponin negative. IMPRESSION: 1. Bradycardia. 2. Seizure disorder. 3. Nonischemic cardiomyopathy. 4. Status post implantable cardioverter-defibrillator. RECOMMENDATIONS: There is no evidence of bradycardia. Her ICD is functioning normally. At this point, I have no further recommendations. Please re-consult if needed. Job ID: [id number]
[2019-02-07] MEDS: levETIRAcetam 500 MG TAB PO SCH (20:59)
[2019-02-07] MEDS: Gabapentin 300 MG CAP PO SCH (20:59)
[2019-02-07] MEDS ORDERED: Non-Formulary Item 1 EACH (Gabapentin [Gabapentin] 1 TAB) PO SCH (21:00)
--- NOTE | 2019-02-07 21:19 | CON ---
DATE OF CONSULTATION: 02/07/2019 CONSULTING PHYSICIAN: Hospitalist Service. IMPRESSION: 1. Recurrent seizure despite Keppra. 2. Past history of meningioma with residual deficits from surgery with right-sided weakness. 3. Bradycardia that was newly discovered. 4. Congestive heart failure. 5. Deep venous thrombosis. PLAN: 1. Increase Keppra to 1500 mg twice a day. 2. Cardiology assessment of bradycardia. HISTORY OF PRESENT ILLNESS: Ms. Solitario is a 73-year-old woman who came in from the [facility]. She apparently had a recurrent seizure. She reports she had a prior seizure last week. She has a past history of meningioma resection. She was on Keppra 1000 mg twice a day on arrival, according to the records. She has not had any further seizures today. She reports still feeling a bit postictal and having difficulty thinking clearly. She has otherwise been stable. Her vital signs showed a normal pulse rate since admission, but apparently it was 35 earlier prior to admission. She has been able to eat and drink without any difficulty. PAST MEDICAL HISTORY: As listed above. ALLERGIES: DILAUDID, CLINDAMYCIN, MORPHINE, NALBUPHINE, PENICILLIN AMONG OTHERS. SOCIAL HISTORY: No tobacco or alcohol. FAMILY HISTORY: Noncontributory. MEDICATIONS: Medication list was reviewed. REVIEW OF SYSTEMS: Ten-system review of systems is otherwise unremarkable. PHYSICAL EXAMINATION: VITAL SIGNS: Blood pressure 91/58, pulse 78, respirations 20, temperature 97.6. HEENT: Pupils are equal. Conjunctivae clear. Oropharynx clear. Cranium, normocephalic and atraumatic. NECK: Supple. No lymphadenopathy. EXTREMITIES: No cyanosis, clubbing, or edema. NEUROLOGIC: She was alert and cooperative. She had fluent, clear speech. There was a slight right facial droop, but otherwise her cranial nerves were intact. She had antigravity strength in the right arm and leg, but rapid movements were significantly impaired. Gait was not tested, but reportedly she can walk with a roller walker. Sensation was intact to light touch. No abnormal movements were seen. IMAGING: CT of the brain shows some left parietal encephalomalacia. LABORATORY DATA: Laboratory studies were unremarkable. SUMMARY: Elderly lady with seizures related to prior damage from meningioma resection. We will increase her Keppra and see how she responds. Job ID: [id number]
[2019-02-08] MEDS: Aspirin 81 mg Enteric Coated Tablet PO SCH ×2 (10:38→11:42)
[2019-02-08] MEDS: busPIRone HCl 5 MG TAB PO SCH ×4 (10:38→21:34)
[2019-02-08] MEDS: Clopidogrel Bisulfate 75 MG TAB PO SCH ×2 (10:38→11:41)
[2019-02-08] MEDS: Enoxaparin Sodium 40 MG/0.4 ML SYRINGE SC SCH ×2 (10:38→11:42)
[2019-02-08] MEDS: OXcarbazepine 150 MG TAB PO SCH ×3 (10:39→21:34)
[2019-02-08] MEDS: Furosemide 40 MG TAB PO SCH ×2 (10:39→11:41)
[2019-02-08] MEDS: Potassium Chloride 10 MEQ TAB PO SCH ×2 (10:40→11:41)
[2019-02-08] MEDS: levETIRAcetam 500 MG TAB PO SCH ×2 (11:37→21:35)
--- NOTE | 2019-02-08 12:28 | PDOC.HOSPP ---
- Subjective Encounter Date: 02/08/19 Encounter Time: 11:25 Subjective: 73 y/o female with prior brain tumor s/p resection, prior CVA with residual right sided weakness, seizure disorder, NICM s/p AICD admitted due to severe bradycardia with rate of 35 as well as recurrent absent seizures associated with headaches and dizziness. Reportedly had absent seizure while talking to one of the nursing staff earlier today. Was lethargic earlier today around 8am. On my repeat evaluation about 3 hours later, she is awake but daze and non conversational. - Objective Vital Signs & Weight: Vital Signs (12 hours) Temp Pulse Resp BP Pulse Ox 02/08/19 11:41 98.4 F 71 16 125/84 93 L 02/08/19 07:59 98 F 73 17 137/74 93 L 02/08/19 04:00 97.7 F 61 18 135/73 96 Weight Admit Weight 160 lb 6.4 oz Weight 160 lb 6.4 oz I&O: 02/07/19 02/08/19 02/09/19 06:59 06:59 06:59 Intake Total 240 1140 Output Total 300 Balance -60 1140 Result Diagrams: 02/06/19 13:00 02/06/19 13:00 ROS - Medication Medications: Active Medications Generic Name Dose Route Start Last Admin Trade Name Freq PRN Reason Stop Dose Admin Acetaminophen 650 mg 02/06/19 17:03 02/07/19 21:00 Tylenol PO 650 mg Q4H PRN Administration Headache/Fever/Mild Pain (1-3) Aspirin 81 mg 02/07/19 09:00 02/08/19 11:42 Ecotrin PO 81 mg DAILY CRISPIN Administration Buspirone HCl 5 mg 02/07/19 09:00 02/08/19 11:39 Buspar PO 5 mg TID CRISPIN Administration Clopidogrel Bisulfate 75 mg 02/07/19 09:00 02/08/19 11:41 Plavix PO 75 mg DAILY CRISPIN Administration Enoxaparin Sodium 40 mg 02/07/19 09:00 02/08/19 11:42 Lovenox SC 40 mg 0900 CRISPIN Administration Furosemide 40 mg 02/07/19 09:00 02/08/19 11:41 Lasix PO 40 mg DAILY CRISPIN Administration Gabapentin 600 mg 02/07/19 21:00 02/07/19 20:59 Neurontin PO 600 mg HS CRISPIN Administration Levetiracetam 1,500 mg 02/07/19 21:00 02/08/19 11:37 Keppra PO 1,500 mg BID CRISPIN Administration Meclizine HCl 25 mg 02/07/19 10:47 02/07/19 20:59 Antivert PO 25 mg Q8H PRN Administration Dizziness Mirabegron 25 mg 02/07/19 09:00 02/08/19 11:41 Myrbetriq Er PO 25 mg DAILY CRISPIN Administration Oxcarbazepine 150 mg 02/07/19 09:00 02/08/19 11:40 Trileptal PO 150 mg BID CRISPIN Administration Pantoprazole Sodium 40 mg 02/07/19 09:00 02/08/19 11:41 Protonix PO 40 mg BID CRISPIN Administration Potassium Chloride 10 meq 02/07/19 09:00 02/08/19 11:41 Klor-Con 10 PO 10 meq DAILY CRISPIN Administration Sodium Chloride 10 ml 02/07/19 09:00 02/08/19 11:42 Flush - Normal Saline IVF 10 ml Q12HR CRISPIN Administration - Exam General - other findings: Awake but confused Eye: anicteric sclera ENT: normocephalic atraumatic Neck: supple, symmetric Heart: RRR Respiratory: no wheezes, no rales, no ronchi Gastrointestinal: soft, non-tender, non-distended, normal bowel sounds Extremities: no cyanosis, no edema Neurological: facial droop, hemiplegia Neurological - other findings: awake but confused Psychiatric - other findings: Confused Hosp A/P (1) Recurrent seizures Code(s): G40.909 - EPILEPSY, UNSP, NOT INTRACTABLE, WITHOUT STATUS EPILEPTICUS Status: Acute (2) Hemiparesis affecting right side as late effect of stroke Code(s): I69.351 - HEMIPLGA FOLLOWING CEREBRAL INFRC AFF RIGHT DOMINANT SIDE Status: Acute (3) Gait instability Code(s): R26.81 - UNSTEADINESS ON FEET Status: Acute (4) Bradycardia Code(s): R00.1 - BRADYCARDIA, UNSPECIFIED Status: Acute (5) Dizziness Code(s): R42 - DIZZINESS AND GIDDINESS Status: Acute (6) Headache Code(s): R51 - HEADACHE Status: Acute (7) NICM (nonischemic cardiomyopathy) Code(s): I42.8 - OTHER CARDIOMYOPATHIES Status: Acute (8) Acute encephalopathy Code(s): G93.40 - ENCEPHALOPATHY, UNSPECIFIED Status: Acute - Plan Continue keppra 1500 as ordered by Neurology Awaiting Neurology re evalation re: EEG Seizure and fall precaution to continue.
[2019-02-08] MEDS ORDERED: levETIRAcetam In NaCl (Iso-Os) 1,500 MG in Premix Bag 1 BAG IVPB SCH (12:30)
[2019-02-08] MEDS: Acetaminophen 325 MG TAB PO PRN ×3 (13:25→18:08)
[2019-02-08] MEDS: Gabapentin 300 MG CAP PO SCH (21:35)
[2019-02-09 05:53] LABS: #Eosinphils 0.1 thou/uL (0.0-0.7); #Monocytes 0.5 thou/uL (0.11-0.59); #Neutrophils 3.6 thou/uL (1.40-6.50); %Basophils 0.1 % (0.0-1.0); %Eosinophils 2.8 % (0.0-10.0); %Lymphocytes 18.4 % (21.0-51.0); %Monocytes 9.1 % (0.0-10.0); %Neutrophils 69.6 % (42.0-75.0); Hemoglobin 14.2 g/dL (12.0-16.0); Mean Corpuscular HGB CONC 33.4 g/dL (32.0-36.0); Mean Corpuscular Hemoglobin 28.1 pg (27.0-31.0); Mean Corpuscular Volume 84.1 fL (78.0-98.0); Mean Platelet Volume 7.5 fL (7.4-10.4); Platelet Count 199 thou/uL (130-400); RBC Distribution Width 13.8 % (11.5-14.5); Red Blood Cell (RBC) Count 5.05 mill/uL (4.20-5.40); White Blood Cell (WBC) Count 5.2 thou/uL (4.8-10.8)
[2019-02-09 06:14] LABS: ALT (SGPT) 9 U/L (8-55); AST (SGOT) 15 U/L (5-34); Albumin 3.8 g/dL (3.4-4.8); Alkaline Phosphatase 88 U/L (40-150); Anion Gap 13 mmol/L (10-20); BUN (Urea Nitrogen) 21 mg/dL (9.8-20.1); Bilirubin, Total 0.5 mg/dL (0.2-1.2); Calc. Creatinine Clearance 66 mL/min (70-130); Calcium 9.7 mg/dL (7.8-10.44); Carbon Dioxide 27 mmol/L (23-31); Chloride 103 mmol/L (98-107); Estimated GFR-MDRD 65; Globulin 2.6 g/dL (2.4-3.5); Glucose 80 mg/dL (83-110); Potassium 3.8 mmol/L (3.5-5.1); Protein, Total 6.4 g/dL (6.0-8.3); Sodium 139 mmol/L (136-145)
[2019-02-09] MEDS: Clopidogrel Bisulfate 75 MG TAB PO SCH (09:12)
[2019-02-09] MEDS: Acetaminophen 325 MG TAB PO PRN ×2 (09:12→21:42)
[2019-02-09] MEDS: Potassium Chloride 10 MEQ TAB PO SCH (09:12)
[2019-02-09] MEDS: levETIRAcetam 500 MG TAB PO SCH ×2 (09:13→22:04)
[2019-02-09] MEDS: Furosemide 40 MG TAB PO SCH (09:13)
[2019-02-09] MEDS: Enoxaparin Sodium 40 MG/0.4 ML SYRINGE SC SCH (09:13)
[2019-02-09] MEDS: Aspirin 81 mg Enteric Coated Tablet PO SCH (09:13)
[2019-02-09] MEDS: busPIRone HCl 5 MG TAB PO SCH ×3 (09:13→22:03)
[2019-02-09] MEDS: OXcarbazepine 150 MG TAB PO SCH ×2 (09:13→22:03)
--- NOTE | 2019-02-09 13:21 | PDOC.HOSPP ---
- Subjective Encounter Date: 02/09/19 Encounter Time: 13:17 Subjective: 73 y/o female with prior brain tumor s/p resection, prior CVA with residual right sided weakness, seizure disorder, NICM s/p AICD admitted due to severe bradycardia with rate of 35 as well as recurrent absent seizures associated with headaches and dizziness. Patient who was observed on 02/08/2019 to have episodes of transient loss of consciousness and awareness while talking with people was thought to be having absent seizures and Keppra dose was increased. patient is more awake today but seem to get worse whenever myself or spouse is around making psychogenic component likely. Also earlier today in the presence of spouse, left upper limb was limp falling down to bed when raised up but when made to faall on her face, she held it to prevent it falling on her face. Patient expressed her desire to go home not back to alf. - Objective Vital Signs & Weight: Vital Signs (12 hours) Temp Pulse Pulse Pulse Resp BP BP 02/09/19 11:45 97.5 F L 72 20 02/09/19 09:43 74 74 125/65 109/58 L 02/09/19 07:20 97.5 F L 74 20 02/09/19 04:00 97.8 F 70 18 BP Pulse Ox 02/09/19 11:45 102/70 96 02/09/19 09:43 02/09/19 07:20 109/58 L 96 02/09/19 04:00 106/61 94 L Weight Admit Weight 160 lb 6.4 oz Weight 160 lb 6.4 oz I&O: 02/08/19 02/09/19 02/10/19 06:59 06:59 06:59 Intake Total 1140 720 Balance 1140 720 Result Diagrams: 02/09/19 04:51 02/09/19 04:51 ROS - Medication Medications: Active Medications Generic Name Dose Route Start Last Admin Trade Name Freq PRN Reason Stop Dose Admin Acetaminophen 650 mg 02/06/19 17:03 02/09/19 09:12 Tylenol PO 650 mg Q4H PRN Administration Headache/Fever/Mild Pain (1-3) Aspirin 81 mg 02/07/19 09:00 02/09/19 09:13 Ecotrin PO 81 mg DAILY CRISPIN Administration Buspirone HCl 5 mg 02/07/19 09:00 02/09/19 09:13 Buspar PO 5 mg TID CRISPIN Administration Clopidogrel Bisulfate 75 mg 02/07/19 09:00 02/09/19 09:12 Plavix PO 75 mg DAILY CRISPIN Administration Enoxaparin Sodium 40 mg 02/07/19 09:00 02/09/19 09:13 Lovenox SC 40 mg 0900 CRISPIN Administration Furosemide 40 mg 02/07/19 09:00 02/09/19 09:13 Lasix PO 40 mg DAILY CRISPIN Administration Gabapentin 600 mg 02/07/19 21:00 02/08/19 21:35 Neurontin PO 600 mg HS CRISPIN Administration Levetiracetam 1,500 mg 02/07/19 21:00 02/09/19 09:13 Keppra PO 1,500 mg BID CRISPIN Administration Meclizine HCl 25 mg 02/07/19 10:47 02/07/19 20:59 Antivert PO 25 mg Q8H PRN Administration Dizziness Mirabegron 25 mg 02/07/19 09:00 02/09/19 09:12 Myrbetriq Er PO 25 mg DAILY CRISPIN Administration Oxcarbazepine 150 mg 02/07/19 09:00 02/09/19 09:13 Trileptal PO 150 mg BID CRISPIN Administration Pantoprazole Sodium 40 mg 02/07/19 09:00 02/09/19 09:13 Protonix PO 40 mg BID CRISPIN Administration Potassium Chloride 10 meq 02/07/19 09:00 02/09/19 09:12 Klor-Con 10 PO 10 meq DAILY CRISPIN Administration Sodium Chloride 10 ml 02/07/19 09:00 02/09/19 09:14 Flush - Normal Saline IVF 10 ml Q12HR CRISPIN Administration - Exam awake alert Eye: anicteric sclera ENT: normocephalic atraumatic Neck: supple, symmetric Heart: RRR Respiratory: no wheezes, no rales, no ronchi Gastrointestinal: soft, non-tender, non-distended, normal bowel sounds Extremities: no cyanosis, no edema Neurological: no new deficit Hosp A/P (1) Recurrent seizures Code(s): G40.909 - EPILEPSY, UNSP, NOT INTRACTABLE, WITHOUT STATUS EPILEPTICUS Status: Acute (2) Hemiparesis affecting right side as late effect of stroke Code(s): I69.351 - HEMIPLGA FOLLOWING CEREBRAL INFRC AFF RIGHT DOMINANT SIDE Status: Acute (3) Gait instability Code(s): R26.81 - UNSTEADINESS ON FEET Status: Acute (4) Bradycardia Code(s): R00.1 - BRADYCARDIA, UNSPECIFIED Status: Acute (5) Dizziness Code(s): R42 - DIZZINESS AND GIDDINESS Status: Acute (6) Headache Code(s): R51 - HEADACHE Status: Acute (7) NICM (nonischemic cardiomyopathy) Code(s): I42.8 - OTHER CARDIOMYOPATHIES Status: Acute (8) Acute encephalopathy Code(s): G93.40 - ENCEPHALOPATHY, UNSPECIFIED Status: Acute - Plan Continue keppra 1500 bid as ordered by Neurology Seizure and fall precaution to continue.
[2019-02-09] MEDS: Gabapentin 300 MG CAP PO SCH (22:02)
[2019-02-10] MEDS: Furosemide 40 MG TAB PO SCH (09:17)
[2019-02-10] MEDS: Potassium Chloride 10 MEQ TAB PO SCH (09:17)
[2019-02-10] MEDS: busPIRone HCl 5 MG TAB PO SCH ×3 (09:18→21:16)
[2019-02-10] MEDS: Aspirin 81 mg Enteric Coated Tablet PO SCH (09:18)
[2019-02-10] MEDS: OXcarbazepine 150 MG TAB PO SCH ×2 (09:18→21:17)
[2019-02-10] MEDS: levETIRAcetam 500 MG TAB PO SCH ×2 (09:18→21:20)
[2019-02-10] MEDS: Acetaminophen 325 MG TAB PO PRN ×3 (09:19→21:17)
[2019-02-10] MEDS: Clopidogrel Bisulfate 75 MG TAB PO SCH (09:19)
[2019-02-10] MEDS: Enoxaparin Sodium 40 MG/0.4 ML SYRINGE SC SCH (09:20)
--- NOTE | 2019-02-10 14:53 | PQF ---
MARISA LIN OBIRONNY [id number] [facility] [place] [id number] CLINICAL DOCUMENTATION IMPROVEMENT CLARIFICATION FORM: ICD-10 Updated PLEASE DO AN ADDENDUM TO THE PROGRESS NOTE WITH ANY DOCUMENTATION UPDATES OR ADDITIONS AND CARRY THROUGH TO DC SUMMARY. THANK YOU. DATE: 02/10/2019 ATTN:DR. Juan Jose NUNEZ Please exercise your independent, professional judgment in responding to the clarification form. Clinical indicators are provided on the bottom of this form for your review. Please check appropriate box(s): Acute Encephalopathy: Etiology: [ ] Hypertensive [ ] Metabolic [ ] Toxic [ ] Hepatic with Coma [ ] Hepatic w/o Coma [ ] Hypoxic [ ] Septic [ ] Drug induced: [X ] Unspecified etiology is unclear. Post ictal state may be contributory [ ] in the setting of underlying dementia [ ] Other (please specify) [ ] Transient Alteration of Awareness [ ] Other diagnosis [ ] Unable to determine In addition, please specify: Present on Admission (POA): [ X ] Yes [ ] No [ ] Unable to determine For continuity of documentation, please document condition throughout progress notes and discharge summary. Thank You. CLINICAL INDICATORS - SIGNS / SYMPTOMS / LABS 02/06 ED PHYSICIAN DX: ALTERED MENTAL STATUS, BRADYCARDIA 02/06 H&P (OBI) HPI- PT BROUGHT IN FROM [facility] DUE TO BRADYCARDIA WITH RATE DOWN TO 35 WELL ALTERED MENTAL SENSATION OF TRANSIENT LOSS OF CONSCIOUSNESS. 02/08- 02/09 PN (OBI): ACUTE ENCEPHALOPATHY RISK: ALTERED MENTAL STATUS, RECURRENT SEIZURES (OBI) ADVANCED AGE (73) SENIOR LIVING RESIDENT TREATMENTS: NEUROLOGY CONSULT BRAIN CT THANK YOU! AUGUST (This form is maintained as a part of the permanent medical record) 2014 [employer] All Rights Reserved [email or web address] [phone] [email or web address]
[2019-02-10] MEDS ORDERED: ISOVUE-370 76%-LOCM 1 ML ONE (16:36)
--- NOTE | 2019-02-10 18:45 | CT ---
CT BRAIN WITH AND WITHOUT IV CONTRAST: 02/10/19 HISTORY: Seizures. CVA. Brain tumor resection, headache. FINDINGS: Comparison made with the noncontrasted exam of 02/06/19. Postop changes in the left parietal regions, changes of cortical atrophy and chronic small vessel ischemic disease are again seen. The ventricular size is stable and the basilar cisterns are patent. No evidence of infarct, hemorrhage, mass, midline shift or abnormal extra-axial fluid collections are seen. No abnormal postcontrast enhancement is identified. There is mucosal disease in the paranasal sinuses. IMPRESSION: No evidence of acute intracranial process or mass. POS: [facility]
--- NOTE | 2019-02-10 20:15 | PDOC.HOSPP ---
- Subjective Encounter Date: 02/10/19 Encounter Time: 15:08 Subjective: 73 y/o female with prior brain tumor s/p resection, prior CVA with residual right sided weakness, seizure disorder, NICM s/p AICD admitted due to severe bradycardia with rate of 35 as well as recurrent absent seizures associated with headaches and dizziness. Patient who was observed on 02/08/2019 to have episodes of transient loss of consciousness and awareness while talking with people suggestive absent seizures and Keppra dose was increased. Patient reports feeling better but continues to complain of headaches and dizziness. - Objective Vital Signs & Weight: Vital Signs (12 hours) Temp Pulse Resp BP Pulse Ox 02/10/19 15:50 97.8 F 82 16 109/65 98 02/10/19 11:49 97.4 F L 70 16 121/77 95 Weight Admit Weight 160 lb 6.4 oz Weight 160 lb 6.4 oz I&O: 02/09/19 02/10/19 02/11/19 06:59 06:59 06:59 Intake Total 720 100 Balance 720 100 Result Diagrams: 02/09/19 04:51 02/09/19 04:51 ROS - Medication Medications: Active Medications Generic Name Dose Route Start Last Admin Trade Name Freq PRN Reason Stop Dose Admin Acetaminophen 650 mg 02/06/19 17:03 02/10/19 16:18 Tylenol PO 650 mg Q4H PRN Administration Headache/Fever/Mild Pain (1-3) Aspirin 81 mg 02/07/19 09:00 02/10/19 09:18 Ecotrin PO 81 mg DAILY CRISPIN Administration Buspirone HCl 5 mg 02/07/19 09:00 02/10/19 16:18 Buspar PO 5 mg TID CRISPIN Administration Clopidogrel Bisulfate 75 mg 02/07/19 09:00 02/10/19 09:19 Plavix PO 75 mg DAILY CRISPIN Administration Enoxaparin Sodium 40 mg 02/07/19 09:00 02/10/19 09:20 Lovenox SC 40 mg 0900 CRISPIN Administration Furosemide 40 mg 02/07/19 09:00 02/10/19 09:17 Lasix PO 40 mg DAILY CRISPIN Administration Gabapentin 600 mg 02/07/19 21:00 02/09/19 22:02 Neurontin PO 600 mg HS CRISPIN Administration Levetiracetam 1,500 mg 02/07/19 21:00 02/10/19 09:18 Keppra PO 1,500 mg BID CRISPIN Administration Mirabegron 25 mg 02/07/19 09:00 02/10/19 09:18 Myrbetriq Er PO 25 mg DAILY CRISPIN Administration Oxcarbazepine 150 mg 02/07/19 09:00 02/10/19 09:18 Trileptal PO 150 mg BID CRISPIN Administration Pantoprazole Sodium 40 mg 02/07/19 09:00 02/10/19 09:17 Protonix PO 40 mg BID CRISPIN Administration Phenytoin Sodium 300 mg 02/09/19 21:00 02/09/19 22:04 Dilantin Er PO 300 mg HS CRISPIN Administration Potassium Chloride 10 meq 02/07/19 09:00 02/10/19 09:17 Klor-Con 10 PO 10 meq DAILY CRISPIN Administration Sodium Chloride 10 ml 02/07/19 09:00 02/10/19 09:20 Flush - Normal Saline IVF 10 ml Q12HR CRISPIN Administration - Exam awake alert Eye: anicteric sclera ENT: normocephalic atraumatic Neck: symmetric Heart: RRR Respiratory: no wheezes, no rales, no ronchi Gastrointestinal: soft, non-tender, non-distended, normal bowel sounds Extremities: no cyanosis, no edema Neurological: no new deficit Neurological - other findings: right hemiparesis persist Psychiatric: A&O x 3 Psychiatric - other findings: emotionally labile Hosp A/P (1) Recurrent seizures Code(s): G40.909 - EPILEPSY, UNSP, NOT INTRACTABLE, WITHOUT STATUS EPILEPTICUS Status: Acute (2) Hemiparesis affecting right side as late effect of stroke Code(s): I69.351 - HEMIPLGA FOLLOWING CEREBRAL INFRC AFF RIGHT DOMINANT SIDE Status: Acute (3) Gait instability Code(s): R26.81 - UNSTEADINESS ON FEET Status: Acute (4) Bradycardia Code(s): R00.1 - BRADYCARDIA, UNSPECIFIED Status: Acute (5) Dizziness Code(s): R42 - DIZZINESS AND GIDDINESS Status: Acute (6) Headache Code(s): R51 - HEADACHE Status: Acute (7) NICM (nonischemic cardiomyopathy) Code(s): I42.8 - OTHER CARDIOMYOPATHIES Status: Acute (8) Acute encephalopathy Code(s): G93.40 - ENCEPHALOPATHY, UNSPECIFIED Status: Acute - Plan Continue keppra 1500 bid as ordered by Neurology Seizure and fall precaution to continue. Get repeat CT head with and without contrast given persistent headaches/ dizziness. MRI could not be obtained due to pacemaker Will discharge pateint tomorrow if CT head is unremarkable. care plan discussed with patient spouse and child at the bedside. Follow keppra level
[2019-02-10] MEDS: Meclizine HCl 25 MG TAB PO SCH (21:18)
[2019-02-10] MEDS: Gabapentin 300 MG CAP PO SCH (21:19)
[2019-02-11 05:57] LABS: Anion Gap 14 mmol/L (10-20); BUN (Urea Nitrogen) 18 mg/dL (9.8-20.1); Calc. Creatinine Clearance 67 mL/min (70-130); Calcium 9.4 mg/dL (7.8-10.44); Carbon Dioxide 26 mmol/L (23-31); Chloride 103 mmol/L (98-107); Estimated GFR-MDRD 66; Glucose 82 mg/dL (83-110); Potassium 3.8 mmol/L (3.5-5.1); Sodium 139 mmol/L (136-145)
[2019-02-11] MEDS: Meclizine HCl 25 MG TAB PO SCH ×2 (06:26→14:21)
[2019-02-11] MEDS: Aspirin 81 mg Enteric Coated Tablet PO SCH (09:36)
[2019-02-11] MEDS: busPIRone HCl 5 MG TAB PO SCH ×2 (09:38→15:29)
[2019-02-11] MEDS: levETIRAcetam 500 MG TAB PO SCH (09:40)
[2019-02-11] MEDS: Clopidogrel Bisulfate 75 MG TAB PO SCH (09:42)
[2019-02-11] MEDS: Potassium Chloride 10 MEQ TAB PO SCH (09:42)
[2019-02-11] MEDS: OXcarbazepine 150 MG TAB PO SCH (09:45)
[2019-02-11] MEDS: Acetaminophen 325 MG TAB PO PRN (09:51)
[2019-02-11] MEDS: Enoxaparin Sodium 40 MG/0.4 ML SYRINGE SC SCH (09:52)
[2019-02-11] MEDS: Furosemide 40 MG TAB PO SCH (10:15)
[2019-02-11 12:14] VITALS: BP 103/63; TEMP 98
--- NOTE | 2019-02-11 14:59 | EKG ---
Test Reason : Blood Pressure : / mmHG Vent. Rate : 071 BPM Atrial Rate : 056 BPM P-R Int : 000 ms QRS Dur : 138 ms QT Int : 456 ms P-R-T Axes : 000 091 -77 degrees QTc Int : 495 ms Demand pacemaker; interpretation is based on intrinsic rhythm Sinus bradycardia with marked sinus arrhythmia with Premature ventricular complexes or Fusion complex es Rightward axis Left ventricular hypertrophy with QRS widening and repolarization abnormality Abnormal ECG Confirmed by NHAN ODEN, ANGEL LUIS ([id number]), business editor TERESE ESPOSITO ([id number]) on 02/11/2019 2:58:44 PM Referred By: Confirmed By:ANGEL LUIS JUSTIN MD
--- NOTE | 2019-02-11 14:59 | EKG ---
Test Reason : Blood Pressure : / mmHG Vent. Rate : 061 BPM Atrial Rate : 061 BPM P-R Int : 094 ms QRS Dur : 126 ms QT Int : 482 ms P-R-T Axes : 045 058 094 degrees QTc Int : 485 ms Electronic ventricular pacemaker Confirmed by ANGEL LUIS JUSTIN MD ([id number]), primer expeditor and drier TERESE ESPOSITO ([id number]) on 02/11/2019 2:58:44 PM Referred By: Confirmed By:ANGEL LUIS JUSTIN MD
--- NOTE | 2019-02-13 14:49 | DIS ---
DATE OF ADMISSION: 02/08/2019 DATE OF DISCHARGE: 02/11/2019 PRIMARY CARE PHYSICIAN: [facility] physician. DISCHARGE DIAGNOSES: 1. Recurrent seizures. 2. Bradycardia. 3. Acute encephalopathy of unclear etiology. Postictal state and medication may be contributory. 4. Nonischemic cardiomyopathy. 5. Headache. 6. Dizziness. 7. Bradycardia. 8. Gait instability. 9. Prior cerebrovascular accident with residual right-sided hemiparesis. 10. Prior history of brain tumor resection. 11. Possible psychogenic nonepileptic seizure. CONSULTS: 1. Neurology. 2. Cardiology. HOSPITAL COURSE: A 73-year-old female with known history of prior brain tumor, status post resection, prior CVA with residual right-sided weakness, seizure disorder, nonischemic cardiomyopathy, status post AICD placement, [facility] due to severe bradycardia with rate of 35 as well as recurrent absence seizures associated with headache and dizziness. On presentation to the hospital, however, the patient was noted not to be bradycardic. Given the fact that the patient was said to be having recurrent seizures prior to presentation associated with transient loss of consciousness and awareness, impression of recurrent absence seizures was made and the patient was started on loading dose of fosphenytoin. Neurology consult was obtained and Keppra was increased from 1000 b.i.d. to 1500 mg b.i.d., in addition, extra IV bolus. Symptoms of transient stare and loss of awareness continued and the patient also continued to have dizziness and headache as well as emotional lability. Neurology re-evaluated the patient and added Dilantin 300 mg at night. It was also observed that the patient's symptoms seems to be worse when the physician is around or when the is around. This raised concern about psychogenic component of this absence seizures. On further questioning, it was realized that the patient does not want to be in the pen[facility], would rather prefer to go back to her home, though could not take her home because he cannot take care of her at home. This was explained to the patient. At some point, requested transfer to [facility], at which point, I explained to him that this would be a lateral transfer, but he later changed his mild, preferring to have the patient discharged, so that he could follow up with his regular neurologist in [facility]. The patient's also observed that the patient's symptoms seems to be worse whenever he is around and tried avoiding coming in to see the patient. Due to the symptoms, we had wanted to get MRI of the brain, but because the patient had an AICD, we could not do this, but repeat CT scan with and without contrast several days into hospitalization showed no acute pathology or acute stroke. At this point, the patient was discharged subsequently to follow up with regular neurologist and symptoms suddenly improved. Of note, also the patient had elevated D-dimer and PE was ruled out with CT angio. Cardiology also saw the patient because of history of bradycardia down to 35. The patient was observed on telemetry and there was no bradycardia recorded. AICD also was interrogated by Cardiology and they could not get any bradycardia. Hence, Cardiology signed off with no further recommendation. PHYSICAL EXAMINATION: VITAL SIGNS: Temperature 98.0, pulse 97, respiratory rate 18, SpO2 of 95% on room air, and blood pressure is 103/63. GENERAL: Elderly female, in no obvious distress. Afebrile. Anicteric. Acyanotic. HEENT: Normocephalic, atraumatic. Oral mucosa is moist. CARDIOVASCULAR: Regular rhythm and rate. RESPIRATORY: Good air entry bilaterally with no crackle or rhonchi or use of accessory muscles. GASTROINTESTINAL: Soft, nontender, and nondistended with normal bowel sounds. EXTREMITIES: Grossly normal looking except mild fixed extension deformity of the right hand. No edema was appreciated. NEUROLOGIC: Conscious and alert. Oriented x3. No involuntary movement. 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 Right-sided mild hemiparesis noted. DISCHARGE DISPOSITION: [facility]. DISCHARGE CONDITION: Stable. DISCHARGE MEDICATIONS: See discharge med rec. This discharge took more than 38 minutes. Job ID: [id number]
== END 2019-02-11 15:38 | DRG 309 ==
LOC: ERS 12:32 → 2SE 17:10 → OBSVTOIN 02-08 14:25
PROVIDERS: ADMIT Internal Medicine Nephrology; ATTEND Internal Medicine Nephrology
DX: R00.1 Bradycardia, unspecified (principal); G93.40 Encephalopathy, unspecified; I69.351 Hemiplegia and hemiparesis following cerebral infarction affecting right dominant side; I42.8 Other cardiomyopathies; F41.9 Anxiety disorder, unspecified; F32.9 Major depressive disorder, single episode, unspecified; G89.4 Chronic pain syndrome; Z96.651 Presence of right artificial knee joint; Z96.652 Presence of left artificial knee joint; Z96.641 Presence of right artificial hip joint; G40.909 Epilepsy, unspecified, not intractable, without status epilepticus; Z86.718 Personal history of other venous thrombosis and embolism; Z95.5 Presence of coronary angioplasty implant and graft; Z95.810 Presence of automatic (implantable) cardiac defibrillator; Z99.3 Dependence on wheelchair; Z90.710 Acquired absence of both cervix and uterus; Z88.0 Allergy status to penicillin; Z88.8 Allergy status to other drugs, medicaments and biological substances; Z79.899 Other long term (current) drug therapy; Z79.82 Long term (current) use of aspirin; Z88.5 Allergy status to narcotic agent; I50.9 Heart failure, unspecified
CPT/HCPCS: 36415; 51701; 70450; 70470; 71045; 71275; 80048; 80053; 80177; 80306; 80307; 82550; 83880; 84443; 84484; 85025; 85379; 85610; 85730; 93005; 94760; 96374; J1650; J1953; J2405; J8597; Q9966

== ENCOUNTER 2021-06-26 05:43 | Day surgery (SDC) | payer MEDICARE ==
[2021-06-24 10:22] VITALS: BMI 31.1
[2021-06-26] MEDS ORDERED: Ketamine 50 MG/ML (10ML VIAL) ONE (07:07)
[2021-06-26] MEDS ORDERED: PROPOFOL 200 MG/20 ML VIAL ONE (08:55)
[2021-06-26] MEDS ORDERED: Fentanyl 100 MCG/2 ML VIAL ONE (10:01)
== END 2021-06-26 11:58 ==
LOC: SDC 05:43
PROVIDERS: ATTEND Internal Medicine Gastroenterology
PROC: 0DB78ZX Excision of Stomach, Pylorus, Via Natural or Artificial Opening Endoscopic, Diagnostic (ICD-10-PCS; principal; 2021-06-26)
PROC: 0W3P8ZZ Control Bleeding in Gastrointestinal Tract, Via Natural or Artificial Opening Endoscopic (ICD-10-PCS; 2021-06-26)
DX: D50.9 Iron deficiency anemia, unspecified (principal); K31.819 Angiodysplasia of stomach and duodenum without bleeding; K29.50 Unspecified chronic gastritis without bleeding; K31.89 Other diseases of stomach and duodenum; K21.9 Gastro-esophageal reflux disease without esophagitis; I69.351 Hemiplegia and hemiparesis following cerebral infarction affecting right dominant side; M19.90 Unspecified osteoarthritis, unspecified site; I10 Essential (primary) hypertension; E78.00 Pure hypercholesterolemia, unspecified; I42.8 Other cardiomyopathies; Z79.02 Long term (current) use of antithrombotics/antiplatelets; Z79.82 Long term (current) use of aspirin; Z79.899 Other long term (current) drug therapy; Z88.0 Allergy status to penicillin; Z88.1 Allergy status to other antibiotic agents; Z88.2 Allergy status to sulfonamides; Z88.5 Allergy status to narcotic agent; Z88.8 Allergy status to other drugs, medicaments and biological substances; Z91.013 Allergy to seafood; Z95.810 Presence of automatic (implantable) cardiac defibrillator
CPT/HCPCS: 88305; J2704; J3010

== ENCOUNTER 2021-08-23 09:47 | Inpatient (IN) | payer MEDICARE ==
[2021-08-23 11:26] LABS: #Eosinphils 0.1 thou/uL (0.0-0.7); #Lymphocytes 0.7 thou/uL (1.20-3.40); #Monocytes 0.6 thou/uL (0.11-0.59); #Neutrophils 3.9 thou/uL (1.40-6.50); %Basophils 0.5 % (0.0-1.0); %Eosinophils 1.3 % (0.0-10.0); %Monocytes 11.6 % (0.0-10.0); %Neutrophils 73.7 % (42.0-75.0); Hemoglobin 11.9 g/dL (12.0-16.0); MDiff Complete? YES; Mean Corpuscular HGB CONC 31.9 g/dL (32.0-36.0); Mean Corpuscular Hemoglobin 23.8 pg (27.0-31.0); Mean Corpuscular Volume 74.5 fL (78.0-98.0); Mean Platelet Volume 9.2 fL (7.4-10.4); Microcytosis SLIGHT = 6-15 cells (100X) (0-5/hpf); Platelet Count 180 thou/uL (130-400); RBC Distribution Width 15.8 % (11.5-14.5); Red Blood Cell (RBC) Count 5.02 mill/uL (4.20-5.40); White Blood Cell (WBC) Count 5.3 thou/uL (4.8-10.8)
[2021-08-23 11:29] LABS: ALT (SGPT) 26 U/L (8-55); AST (SGOT) 30 U/L (5-34); Albumin 3.8 g/dL (3.4-4.8); Alkaline Phosphatase 95 U/L (40-110); Anion Gap 15 mmol/L (10-20); BUN (Urea Nitrogen) 24 mg/dL (9.8-20.1); Bilirubin, Total 0.4 mg/dL (0.2-1.2); Calc. Creatinine Clearance 0 mL/min (70-130); Calcium 8.3 mg/dL (7.8-10.44); Carbon Dioxide 20 mmol/L (23-31); Chloride 108 mmol/L (98-107); Globulin 2.4 g/dL (2.4-3.5); Glucose 95 mg/dL (83-110); Lipase 39 U/L (8-78); Potassium 3.1 mmol/L (3.5-5.1); Protein, Total 6.2 g/dL (5.8-8.1); Sodium 140 mmol/L (136-145)
[2021-08-23 12:13] LABS: Bacteria/HPF 2+ HPF (None Seen); Bilirubin Negative (Negative); Blood, Urine Negative (Negative); Clarity Clear (Clear); Glucose, Urine (Dipstick) 70 mg/dL (Negative); Ketone, Urine Trace mg/dL (Negative); Leukocyte Negative Leu/uL (Negative); Nitrite Negative (Negative); Protein, Urine (Dipstick) 70 mg/dL (Neg-Trace); RBC/HPF 0-3 HPF (0-3); Specific Gravity, Urine 1.025 (1.002-1.036); Squamous Epithelial 0-3 HPF (0-3); Urobilinogen Normal mg/dL (Less than 2); pH, Urine 5.5 (5.0-9.0)
[2021-08-23] MEDS ORDERED: Dicyclomine 20 MG TAB ONE (12:59)
[2021-08-23] MEDS ORDERED: hydrOXYzine 25 MG TAB ONE (12:59)
[2021-08-23] MEDS ORDERED: NS 0.9% w/ 20 MEQ KCL 1,000 ML ONE (13:48)
[2021-08-23] MEDS ORDERED: Fentanyl 100 MCG/2 ML VIAL ONE (14:45)
[2021-08-23] MEDS ORDERED: hydrALAZINE 20 MG/ML VIAL SLOW IVP PRN (15:20)
[2021-08-23] MEDS ORDERED: Ondansetron ODT 4 MG TAB PO PRN (15:20)
[2021-08-23] MEDS ORDERED: Ondansetron PF 4 MG/2 ML Vial IVP PRN (15:20)
[2021-08-23 16:26] VITALS: BMI 31.4
[2021-08-23] MEDS: Ciprofloxacin Lactate/D5W 200 MG in Premix Bag 1 BAG IVPB SCH (20:42)
[2021-08-23] MEDS ORDERED: traMADol HCl 50 MG TAB PO SCH (20:45)
[2021-08-23] MEDS: metroNIDAZOLE 500 MG in Premix Bag 1 BAG IVPB SCH (22:04)
[2021-08-23] MEDS: Acetaminophen 325 MG TAB PO PRN (22:05)
[2021-08-23] MEDS ORDERED: Melatonin 3 MG TAB PO SCH (22:30)
[2021-08-23 23:43] LABS: SARS-CoV-2 PCR by NAA Not Detected (NotDetected)
[2021-08-24] MEDS ORDERED: Dicyclomine 10 MG CAP PO SCH (01:00)
[2021-08-24] MEDS: metroNIDAZOLE 500 MG in Premix Bag 1 BAG IVPB SCH ×3 (05:52→21:54)
[2021-08-24 06:19] LABS: Hemoglobin 10.7 g/dL (12.0-16.0); Mean Corpuscular HGB CONC 30.3 g/dL (32.0-36.0); Mean Corpuscular Hemoglobin 22.7 pg (27.0-31.0); Mean Corpuscular Volume 74.7 fL (78.0-98.0); Mean Platelet Volume 9.1 fL (7.4-10.4); Platelet Count 172 thou/uL (130-400); RBC Distribution Width 15.8 % (11.5-14.5); Red Blood Cell (RBC) Count 4.72 mill/uL (4.20-5.40); White Blood Cell (WBC) Count 3.2 thou/uL (4.8-10.8)
[2021-08-24 06:34] LABS: Anion Gap 12 mmol/L (10-20); BUN (Urea Nitrogen) 15 mg/dL (9.8-20.1); Calc. Creatinine Clearance 76 mL/min (70-130); Calcium 8.5 mg/dL (7.8-10.44); Carbon Dioxide 17 mmol/L (23-31); Chloride 115 mmol/L (98-107); Glucose 80 mg/dL (83-110); Potassium 3.2 mmol/L (3.5-5.1); Sodium 141 mmol/L (136-145)
[2021-08-24 06:45] LABS: Band 12 % (5-11); Eosinophils 3 % (0-10); Lymphocytes 21 % (21-51); MDiff Complete? YES; Microcytosis SLIGHT = 6-15 cells (100X) (0-5/hpf); Monocytes 11 % (0-10); Myelocyte 1 % (0-0); Neutrophil 52 % (42-75)
[2021-08-24] MEDS ORDERED: Potassium Bicarbonate/Cit Ac 20 MEQ TAB PO SCH (07:45)
[2021-08-24] MEDS: Saccharomyces boulardii 250 MG CAP PO SCH (08:12)
[2021-08-24] MEDS: Enoxaparin Sodium 30 MG/0.3 ML SYRINGE SC SCH (08:12)
[2021-08-24] MEDS: Ciprofloxacin Lactate/D5W 200 MG in Premix Bag 1 BAG IVPB SCH ×2 (08:13→21:01)
[2021-08-24] MEDS ORDERED: Pantoprazole 40 MG VIAL IVP SCH (09:00)
[2021-08-24] MEDS: NS 0.9% w/ 40 MEQ KCL 1,000 ML IV SCH (09:34)
[2021-08-24 09:43] LABS: Magnesium 1.8 mg/dL (1.6-2.6)
[2021-08-24] MEDS ORDERED: busPIRone HCl 5 MG TAB PO SCH (10:00)
[2021-08-24] MEDS ORDERED: Clopidogrel Bisulfate 75 MG TAB PO SCH (10:00)
[2021-08-24] MEDS ORDERED: Aspirin 81 mg Enteric Coated Tablet PO SCH (10:00)
[2021-08-24] MEDS ORDERED: levETIRAcetam 500 MG TAB PO SCH (10:00)
[2021-08-24] MEDS ORDERED: Pramipexole Di-HCl 1 MG TAB PO SCH (10:00)
[2021-08-24] MEDS: Acetaminophen 325 MG TAB PO PRN (11:27)
[2021-08-24] MEDS: busPIRone HCl 5 MG TAB PO SCH ×2 (14:46→20:58)
[2021-08-24] MEDS ORDERED: hydrOXYzine 25 MG TAB PO PRN (16:11)
[2021-08-24] MEDS: Pantoprazole 40 MG VIAL IVP SCH (20:57)
[2021-08-24] MEDS: Pramipexole Di-HCl 1 MG TAB PO SCH (20:57)
[2021-08-24] MEDS: levETIRAcetam 500 MG TAB PO SCH (20:58)
[2021-08-24] MEDS: Gabapentin 300 MG CAP PO SCH (20:59)
[2021-08-24] MEDS: Rosuvastatin 20 MG TAB PO SCH (20:59)
[2021-08-25] MEDS: NS 0.9% w/ 40 MEQ KCL 1,000 ML IV SCH ×2 (05:04→06:42)
[2021-08-25 06:15] LABS: Phosphorus 2.8 mg/dL (2.3-4.7)
[2021-08-25 06:16] LABS: Anion Gap 10 mmol/L (10-20); BUN (Urea Nitrogen) 8 mg/dL (9.8-20.1); Calc. Creatinine Clearance 82 mL/min (70-130); Carbon Dioxide 18 mmol/L (23-31); Chloride 116 mmol/L (98-107); Glucose 81 mg/dL (83-110); Magnesium 1.8 mg/dL (1.6-2.6); Potassium 3.6 mmol/L (3.5-5.1); Sodium 140 mmol/L (136-145)
[2021-08-25 06:40] LABS: Hemoglobin 10.4 g/dL (12.0-16.0); Mean Corpuscular HGB CONC 31.5 g/dL (32.0-36.0); Mean Corpuscular Hemoglobin 23.2 pg (27.0-31.0); Mean Corpuscular Volume 73.6 fL (78.0-98.0); Mean Platelet Volume 9.3 fL (7.4-10.4); Platelet Count 167 thou/uL (130-400); RBC Distribution Width 15.5 % (11.5-14.5); Red Blood Cell (RBC) Count 4.48 mill/uL (4.20-5.40); White Blood Cell (WBC) Count 2.4 thou/uL (4.8-10.8)
[2021-08-25 06:41] LABS: Band 8 % (5-11); Eosinophils 3 % (0-10); Lymphocytes 42 % (21-51); MDiff Complete? YES; Monocytes 8 % (0-10); Neutrophil 39 % (42-75)
[2021-08-25] MEDS: metroNIDAZOLE 500 MG in Premix Bag 1 BAG IVPB SCH ×3 (06:42→23:15)
[2021-08-25] MEDS: levETIRAcetam 500 MG TAB PO SCH ×2 (08:45→21:58)
[2021-08-25] MEDS: Saccharomyces boulardii 250 MG CAP PO SCH (08:45)
[2021-08-25] MEDS: Enoxaparin Sodium 30 MG/0.3 ML SYRINGE SC SCH ×2 (08:46→08:48)
[2021-08-25] MEDS: Pramipexole Di-HCl 1 MG TAB PO SCH ×2 (08:46→21:57)
[2021-08-25] MEDS: busPIRone HCl 5 MG TAB PO SCH ×3 (08:46→21:57)
[2021-08-25] MEDS: Aspirin 81 mg Enteric Coated Tablet PO SCH (08:46)
[2021-08-25] MEDS: Pantoprazole 40 MG VIAL IVP SCH ×2 (08:46→21:58)
[2021-08-25] MEDS: Clopidogrel Bisulfate 75 MG TAB PO SCH (08:46)
[2021-08-25] MEDS: Ciprofloxacin Lactate/D5W 200 MG in Premix Bag 1 BAG IVPB SCH ×2 (08:58→21:58)
[2021-08-25] MEDS: Acetaminophen 325 MG TAB PO PRN (12:11)
[2021-08-25] MEDS ORDERED: Potassium Chloride 20 MEQ in Lactated Ringer's 1,000 ML IV SCH (13:30)
[2021-08-25] MEDS: Rosuvastatin 20 MG TAB PO SCH (21:57)
[2021-08-25] MEDS: Gabapentin 300 MG CAP PO SCH (21:57)
[2021-08-26] MEDS: metroNIDAZOLE 500 MG in Premix Bag 1 BAG IVPB SCH (06:16)
[2021-08-26] MEDS: Acetaminophen 325 MG TAB PO PRN (06:22)
[2021-08-26] MEDS: Aspirin 81 mg Enteric Coated Tablet PO SCH (08:34)
[2021-08-26] MEDS: levETIRAcetam 500 MG TAB PO SCH (08:35)
[2021-08-26] MEDS: Clopidogrel Bisulfate 75 MG TAB PO SCH (08:35)
[2021-08-26] MEDS: Pramipexole Di-HCl 1 MG TAB PO SCH (08:35)
[2021-08-26] MEDS: busPIRone HCl 5 MG TAB PO SCH ×2 (08:36→14:58)
[2021-08-26] MEDS: Ciprofloxacin Lactate/D5W 200 MG in Premix Bag 1 BAG IVPB SCH (08:36)
[2021-08-26] MEDS: Pantoprazole 40 MG VIAL IVP SCH (08:36)
[2021-08-26] MEDS: Saccharomyces boulardii 250 MG CAP PO SCH (08:36)
[2021-08-26] MEDS: Enoxaparin Sodium 30 MG/0.3 ML SYRINGE SC SCH (08:36)
[2021-08-26] MEDS ORDERED: Dicyclomine 10 MG CAP PO PRN (09:26)
[2021-08-26 17:21] VITALS: BP 121/74
[2021-08-26 17:37] VITALS: TEMP 98.2
== END 2021-08-26 17:42 | DRG 392 ==
LOC: ERS 09:47 → T4-A 13:24 → OBSVTOIN 08-25 09:17
PROVIDERS: ADMIT Internal Medicine; ATTEND Internal Medicine
DX: R10.84 Generalized abdominal pain (principal); I69.351 Hemiplegia and hemiparesis following cerebral infarction affecting right dominant side; I42.8 Other cardiomyopathies; N17.9 Acute kidney failure, unspecified; Z20.822 Contact with and (suspected) exposure to COVID-19; Z66 Do not resuscitate; E87.8 Other disorders of electrolyte and fluid balance, not elsewhere classified; E66.9 Obesity, unspecified; I10 Essential (primary) hypertension; M19.90 Unspecified osteoarthritis, unspecified site; F41.9 Anxiety disorder, unspecified; F32.A Depression, unspecified; Z96.653 Presence of artificial knee joint, bilateral; G89.4 Chronic pain syndrome; K75.81 Nonalcoholic steatohepatitis (NASH); N18.2 Chronic kidney disease, stage 2 (mild); G25.81 Restless legs syndrome; G62.9 Polyneuropathy, unspecified; I73.9 Peripheral vascular disease, unspecified; Z96.641 Presence of right artificial hip joint; E87.6 Hypokalemia; E83.42 Hypomagnesemia; R11.2 Nausea with vomiting, unspecified; R19.7 Diarrhea, unspecified; Z87.19 Personal history of other diseases of the digestive system; Z28.21 Immunization not carried out because of patient refusal; Z68.31 Body mass index [BMI] 31.0-31.9, adult; Z79.899 Other long term (current) drug therapy; Z88.8 Allergy status to other drugs, medicaments and biological substances; Z88.6 Allergy status to analgesic agent; Z88.1 Allergy status to other antibiotic agents; Z88.5 Allergy status to narcotic agent; Z88.0 Allergy status to penicillin; Z91.013 Allergy to seafood; Z79.82 Long term (current) use of aspirin; Z79.02 Long term (current) use of antithrombotics/antiplatelets; Z86.718 Personal history of other venous thrombosis and embolism; Z90.710 Acquired absence of both cervix and uterus; Z98.890 Other specified postprocedural states
CPT/HCPCS: 36415; 51701; 80048; 80053; 81003; 81015; 83605; 83630; 83690; 83735; 84100; 84484; 85025; 87045; 87046; 87081; 87324; 87427; 87449; 93005; 96372; 96374; 96375; 96376; C9113; G0378; J0744; J1650; J2405; J3010; J3480; J7120; Q0162; U0003; U0005

== ENCOUNTER 2022-01-24 14:21 | Inpatient (IN) | payer MEDICARE ==
[2022-01-24 15:04] LABS: Bacteria/HPF 4+ HPF (None Seen); Bilirubin Negative (Negative); Blood, Urine Negative (Negative); Clarity Clear (Clear); Glucose, Urine (Dipstick) Greater than 1000 mg/dL (Negative); Ketone, Urine Negative (Negative); Leukocyte 250 Leu/uL (Negative); Nitrite Negative (Negative); Protein, Urine (Dipstick) 10 mg/dL (Neg-Trace); RBC/HPF 0-3 HPF (0-3); Specific Gravity, Urine 1.023 (1.002-1.036); Squamous Epithelial 0-3 HPF (0-3); WBC/HPF Greater than 50 HPF (0-3); pH, Urine 6.5 (5.0-9.0)
[2022-01-24 15:10] LABS: Amphetamine Not Detected (NotDetected); Barbiturates Screen Not Detected (NotDetected); Benzodiazepine Screen Not Detected (NotDetected); Cocaine Metabolite Screen Not Detected (NotDetected); Methadone Not Detected (NotDetected); Methamphetamine Not Detected (NotDetected); Opiate Screen Not Detected (NotDetected); Oxycodone Screen Not Detected (NotDetected); Phencyclidine (PCP) Not Detected (NotDetected); THC/Cannabinoid Screen Not Detected (NotDetected); Tricyclic Screen Not Detected (NotDetected)
[2022-01-24 16:26] LABS: Actual Bicarbonate (HCO3v) 26 mEq/L (22-28); Base Excess 0.9 mEq/L (-2.0 to +3.0); Calcium, Ionized (venous) 1.12 mmol/L (1.16-1.32); Chloride (VBG) 108 mmol/L (98-106); Hemoglobin (Hb) 11.1 g/dL (11.7-16.1); Potassium (VBG) 4.24 mmol/L (3.70-5.30); Sodium 139.5 mmol/L (133-146); pH (venous) 7.41 (7.32-7.43)
[2022-01-24 16:33] LABS: Hemoglobin 10.2 g/dL (12.0-16.0); Mean Corpuscular Hemoglobin 23.3 pg (27.0-31.0); Mean Corpuscular Volume 72.9 fL (78.0-98.0); Platelet Count 253 thou/uL (130-400); RBC Distribution Width 15.8 % (11.5-14.5); Red Blood Cell (RBC) Count 4.39 mill/uL (4.20-5.40); White Blood Cell (WBC) Count 5.8 thou/uL (4.8-10.8)
[2022-01-24 16:36] LABS: Acetaminophen Less than 10.0 mcg/mL (10.0-30.0); Alcohol Less than 10 mg/dL (Less than 10); Salicylate Less than 8.0 mg/dL (15.0-30.0)
[2022-01-24 16:41] LABS: ALT (SGPT) 12 U/L (8-55); AST (SGOT) 16 U/L (5-34); Albumin 3.5 g/dL (3.4-4.8); Alkaline Phosphatase 85 U/L (40-110); Anion Gap 15 mmol/L (10-20); BUN (Urea Nitrogen) 10 mg/dL (9.8-20.1); Bilirubin, Total 0.3 mg/dL (0.2-1.2); Calc. Creatinine Clearance 0 mL/min (70-130); Calcium 8.9 mg/dL (7.8-10.44); Carbon Dioxide 19 mmol/L (23-31); Chloride 107 mmol/L (98-107); Estimated GFR 81; Globulin 2.9 g/dL (2.4-3.5); Glucose 112 mg/dL (83-110); Magnesium 1.9 mg/dL (1.6-2.6); Protein, Total 6.4 g/dL (5.8-8.1); Sodium 137 mmol/L (136-145)
[2022-01-24 16:46] LABS: #Eosinphils 0.2 thou/uL (0.0-0.7); #Lymphocytes 1.2 thou/uL (1.20-3.40); #Monocytes 0.5 thou/uL (0.11-0.59); #Neutrophils 3.9 thou/uL (1.40-6.50); %Basophils 0.4 % (0.0-1.0); %Eosinophils 3.5 % (0.0-10.0); %Lymphocytes 21.2 % (21.0-51.0); %Monocytes 8.2 % (0.0-10.0); %Neutrophils 66.8 % (42.0-75.0); Hypochromia SLIGHT = 6-15 cells (100X) (0-5/hpf); Large Platelets SLIGHT; MDiff Complete? YES; Microcytosis MODERATE=15-30 cells (100X) (0-5/hpf); Ovalocytes SLIGHT = 2-5 cells (100X) (0-1/hpf); Platelet Morphology Comment Appears Adequate; Polychromasia SLIGHT = 2-3 cells (100X) (0-2/hpf)
[2022-01-24 16:57] LABS: SARS-CoV-2 NAA Rapid Test DETECTED (NotDetected)
[2022-01-24] MEDS ORDERED: Ondansetron PF 4 MG/2 ML Vial ONE (17:59)
[2022-01-24] MEDS ORDERED: Ondansetron PF 4 MG/2 ML Vial IVP PRN (18:13)
[2022-01-24] MEDS ORDERED: Bisacodyl 5 MG TAB PO PRN (18:13)
[2022-01-24] MEDS ORDERED: Senokot S 8.6-50 MG TAB PO PRN (18:13)
[2022-01-24] MEDS ORDERED: Azelastine 137 MCG/Spray 30 ML NS PRN (18:25)
[2022-01-24] MEDS ORDERED: hydrOXYzine 25 MG TAB PO PRN (18:25)
[2022-01-24] MEDS ORDERED: Enoxaparin Sodium 40 MG/0.4 ML SYRINGE SC SCH (18:30)
[2022-01-24 18:46] LABS: Lactic Acid 1.6 mmol/L (0.5-2.2)
[2022-01-24] MEDS ORDERED: Zinc Sulfate 220 MG CAP PO SCH (20:00)
[2022-01-24 20:46] LABS: Hemoglobin A1c 5.7 % (4.0-6.0)
[2022-01-24] MEDS ORDERED: Cholecalciferol (Vitamin D3) 400 UNITS TAB PO SCH (21:00)
[2022-01-24] MEDS ORDERED: Pantoprazole 40 MG VIAL IVP SCH (21:00)
[2022-01-24] MEDS ORDERED: Ascorbic Acid 500 mg Chewable Tablet PO SCH (21:00)
[2022-01-24] MEDS: Rosuvastatin 20 MG TAB PO SCH (21:14)
[2022-01-24] MEDS: Pramipexole Di-HCl 1 MG TAB PO SCH (21:14)
[2022-01-24] MEDS: Gabapentin 300 MG CAP PO SCH (21:14)
[2022-01-24] MEDS: Acetaminophen 325 MG TAB PO PRN (21:15)
[2022-01-24] MEDS: Sodium Chloride 0.9% 1,000 ML IV SCH (21:15)
[2022-01-24] MEDS: levETIRAcetam 500 mg/5 ml Oral Solution PO SCH (21:16)
[2022-01-24 21:28] VITALS: BMI 28.8
[2022-01-25 05:12] LABS: #Eosinphils 0.2 thou/uL (0.0-0.7); #Lymphocytes 1.2 thou/uL (1.20-3.40); #Monocytes 0.4 thou/uL (0.11-0.59); %Basophils 0.5 % (0.0-1.0); %Eosinophils 3.7 % (0.0-10.0); %Monocytes 7.7 % (0.0-10.0); %Neutrophils 63.1 % (42.0-75.0); Hemoglobin 9.3 g/dL (12.0-16.0); Mean Corpuscular HGB CONC 32.5 g/dL (32.0-36.0); Mean Corpuscular Hemoglobin 23.6 pg (27.0-31.0); Mean Corpuscular Volume 72.8 fL (78.0-98.0); Mean Platelet Volume 9.2 fL (7.4-10.4); Platelet Count 216 thou/uL (130-400); RBC Distribution Width 15.8 % (11.5-14.5); Red Blood Cell (RBC) Count 3.92 mill/uL (4.20-5.40); White Blood Cell (WBC) Count 4.8 thou/uL (4.8-10.8)
[2022-01-25 05:32] LABS: ALT (SGPT) 11 U/L (8-55); AST (SGOT) 11 U/L (5-34); Alkaline Phosphatase 72 U/L (40-110); Anion Gap 13 mmol/L (10-20); BUN (Urea Nitrogen) 9 mg/dL (9.8-20.1); Bilirubin, Total 0.3 mg/dL (0.2-1.2); Calc. Creatinine Clearance 80 mL/min (70-130); Calcium 8.4 mg/dL (7.8-10.44); Carbon Dioxide 22 mmol/L (23-31); Chloride 108 mmol/L (98-107); Estimated GFR 90; Globulin 2.4 g/dL (2.4-3.5); Glucose 86 mg/dL (83-110); Protein, Total 5.4 g/dL (5.8-8.1); Sodium 139 mmol/L (136-145)
[2022-01-25] MEDS: Acetaminophen 325 MG TAB PO PRN ×3 (05:45→18:16)
[2022-01-25 08:33] LABS: Troponin I Less than 0.010 ng/mL (< 0.028)
[2022-01-25] MEDS: Aspirin 81 mg Enteric Coated Tablet PO SCH (08:34)
[2022-01-25] MEDS: Sodium Chloride 0.9% 1,000 ML IV SCH (08:34)
[2022-01-25] MEDS: Ascorbic Acid 500 mg Chewable Tablet PO SCH (08:34)
[2022-01-25] MEDS: Pramipexole Di-HCl 1 MG TAB PO SCH ×2 (08:35→22:09)
[2022-01-25] MEDS: levETIRAcetam 500 mg/5 ml Oral Solution PO SCH ×2 (08:35→22:09)
[2022-01-25] MEDS: Donepezil HCl 5 MG TAB PO SCH (08:35)
[2022-01-25] MEDS: Cholecalciferol (Vitamin D3) 400 UNITS TAB PO SCH (08:35)
[2022-01-25] MEDS: Clopidogrel Bisulfate 75 MG TAB PO SCH (08:35)
[2022-01-25] MEDS: Zinc Sulfate 220 MG CAP PO SCH (08:35)
[2022-01-25] MEDS: Saccharomyces boulardii 250 MG CAP PO SCH (08:35)
[2022-01-25] MEDS: Enoxaparin Sodium 40 MG/0.4 ML SYRINGE SC SCH (08:36)
[2022-01-25] MEDS ORDERED: Pantoprazole 40 MG VIAL IVP SCH (09:00)
[2022-01-25] MEDS: Polyethylene Glycol OPTH DROP 15 ML BOT EA EYE SCH (15:31)
[2022-01-25] MEDS: Lactated Ringer's 1,000 ML IV SCH (18:15)
[2022-01-25] MEDS: busPIRone HCl 5 MG TAB PO SCH (22:07)
[2022-01-25] MEDS: Dicyclomine 10 MG CAP PO SCH (22:07)
[2022-01-25] MEDS: Gabapentin 300 MG CAP PO SCH (22:08)
[2022-01-25] MEDS: Famotidine 20 MG TAB PO SCH (22:08)
[2022-01-25] MEDS: Rosuvastatin 20 MG TAB PO SCH (22:09)
[2022-01-26 04:56] LABS: #Eosinphils 0.2 thou/uL (0.0-0.7); #Lymphocytes 1.1 thou/uL (1.20-3.40); #Monocytes 0.3 thou/uL (0.11-0.59); %Basophils 0.6 % (0.0-1.0); %Eosinophils 3.8 % (0.0-10.0); %Lymphocytes 23.4 % (21.0-51.0); %Monocytes 7.4 % (0.0-10.0); %Neutrophils 64.8 % (42.0-75.0); Hemoglobin 9.1 g/dL (12.0-16.0); Mean Corpuscular HGB CONC 31.6 g/dL (32.0-36.0); Mean Corpuscular Hemoglobin 22.9 pg (27.0-31.0); Mean Corpuscular Volume 72.6 fL (78.0-98.0); Mean Platelet Volume 9.3 fL (7.4-10.4); Platelet Count 211 thou/uL (130-400); RBC Distribution Width 15.7 % (11.5-14.5); Red Blood Cell (RBC) Count 3.96 mill/uL (4.20-5.40); White Blood Cell (WBC) Count 4.6 thou/uL (4.8-10.8)
[2022-01-26 05:15] LABS: Anion Gap 11 mmol/L (10-20); BUN (Urea Nitrogen) 10 mg/dL (9.8-20.1); Calc. Creatinine Clearance 77 mL/min (70-130); Calcium 8.9 mg/dL (7.8-10.44); Carbon Dioxide 23 mmol/L (23-31); Chloride 111 mmol/L (98-107); Estimated GFR 89; Glucose 88 mg/dL (83-110); Potassium 4.2 mmol/L (3.5-5.1); Sodium 141 mmol/L (136-145)
[2022-01-26] MEDS: Lactated Ringer's 1,000 ML IV SCH (09:54)
[2022-01-26] MEDS: Dicyclomine 10 MG CAP PO SCH ×4 (09:55→21:51)
[2022-01-26] MEDS: Zinc Sulfate 220 MG CAP PO SCH (09:55)
[2022-01-26] MEDS: Enoxaparin Sodium 40 MG/0.4 ML SYRINGE SC SCH (09:55)
[2022-01-26] MEDS: Famotidine 20 MG TAB PO SCH ×2 (09:56→21:51)
[2022-01-26] MEDS: Pramipexole Di-HCl 1 MG TAB PO SCH ×2 (09:56→21:50)
[2022-01-26] MEDS: Donepezil HCl 5 MG TAB PO SCH (09:56)
[2022-01-26] MEDS: Saccharomyces boulardii 250 MG CAP PO SCH (09:57)
[2022-01-26] MEDS: Acetaminophen 325 MG TAB PO PRN ×2 (09:57→22:38)
[2022-01-26] MEDS: Lisinopril 5 MG TAB PO SCH (09:57)
[2022-01-26] MEDS: levETIRAcetam 500 mg/5 ml Oral Solution PO SCH ×2 (09:58→21:50)
[2022-01-26] MEDS: Aspirin 81 mg Enteric Coated Tablet PO SCH (09:58)
[2022-01-26] MEDS: Clopidogrel Bisulfate 75 MG TAB PO SCH (09:58)
[2022-01-26] MEDS: busPIRone HCl 5 MG TAB PO SCH ×3 (09:58→21:51)
[2022-01-26] MEDS: Ascorbic Acid 500 mg Chewable Tablet PO SCH (09:58)
[2022-01-26] MEDS: Polyethylene Glycol OPTH DROP 15 ML BOT EA EYE SCH (10:01)
[2022-01-26] MEDS: Cholecalciferol (Vitamin D3) 400 UNITS TAB PO SCH (10:06)
[2022-01-26] MEDS: Gabapentin 300 MG CAP PO SCH (21:50)
[2022-01-26] MEDS: Rosuvastatin 20 MG TAB PO SCH (21:51)
[2022-01-26] MEDS ORDERED: Cefdinir 300 MG CAP PO SCH (23:45)
[2022-01-27] MEDS: Lactated Ringer's 1,000 ML IV SCH ×2 (00:33→10:08)
[2022-01-27 04:29] LABS: #Eosinphils 0.3 thou/uL (0.0-0.7); #Lymphocytes 1.1 thou/uL (1.20-3.40); #Monocytes 0.4 thou/uL (0.11-0.59); #Neutrophils 3.2 thou/uL (1.40-6.50); %Basophils 0.5 % (0.0-1.0); %Eosinophils 5.6 % (0.0-10.0); %Lymphocytes 21.8 % (21.0-51.0); %Monocytes 8.9 % (0.0-10.0); %Neutrophils 63.2 % (42.0-75.0); Hemoglobin 9.3 g/dL (12.0-16.0); Mean Corpuscular HGB CONC 31.9 g/dL (32.0-36.0); Mean Corpuscular Volume 72.2 fL (78.0-98.0); Mean Platelet Volume 9.3 fL (7.4-10.4); Platelet Count 217 thou/uL (130-400); RBC Distribution Width 15.9 % (11.5-14.5); Red Blood Cell (RBC) Count 4.02 mill/uL (4.20-5.40)
[2022-01-27 04:54] LABS: Anion Gap 14 mmol/L (10-20); BUN (Urea Nitrogen) 12 mg/dL (9.8-20.1); Calc. Creatinine Clearance 72 mL/min (70-130); Calcium 8.9 mg/dL (7.8-10.44); Carbon Dioxide 23 mmol/L (23-31); Chloride 109 mmol/L (98-107); Estimated GFR 83; Glucose 92 mg/dL (83-110); Sodium 142 mmol/L (136-145)
[2022-01-27] MEDS ORDERED: Cefdinir 300 MG CAP PO SCH (09:00)
[2022-01-27] MEDS: Donepezil HCl 5 MG TAB PO SCH (09:50)
[2022-01-27] MEDS: Lisinopril 5 MG TAB PO SCH (09:51)
[2022-01-27] MEDS: Aspirin 81 mg Enteric Coated Tablet PO SCH (09:51)
[2022-01-27] MEDS: Zinc Sulfate 220 MG CAP PO SCH (09:51)
[2022-01-27] MEDS: Pramipexole Di-HCl 1 MG TAB PO SCH ×2 (09:51→21:34)
[2022-01-27] MEDS: Famotidine 20 MG TAB PO SCH ×2 (09:51→21:33)
[2022-01-27] MEDS: Clopidogrel Bisulfate 75 MG TAB PO SCH (09:51)
[2022-01-27] MEDS: Saccharomyces boulardii 250 MG CAP PO SCH (09:52)
[2022-01-27] MEDS: busPIRone HCl 5 MG TAB PO SCH ×3 (09:52→21:33)
[2022-01-27] MEDS: Ascorbic Acid 500 mg Chewable Tablet PO SCH (09:52)
[2022-01-27] MEDS: Cholecalciferol (Vitamin D3) 400 UNITS TAB PO SCH (09:52)
[2022-01-27] MEDS: levETIRAcetam 500 mg/5 ml Oral Solution PO SCH ×2 (09:52→21:34)
[2022-01-27] MEDS: Enoxaparin Sodium 40 MG/0.4 ML SYRINGE SC SCH (09:52)
[2022-01-27] MEDS: Dicyclomine 10 MG CAP PO SCH ×4 (09:53→21:33)
[2022-01-27] MEDS: Polyethylene Glycol OPTH DROP 15 ML BOT EA EYE SCH (10:07)
[2022-01-27] MEDS ORDERED: Meropenem 1 GM in Sodium Chloride 0.9% 100 ML IVPB SCH (10:30)
[2022-01-27] MEDS: Meropenem 1 GM in Sodium Chloride 0.9% 100 ML IVPB SCH (19:06)
[2022-01-27] MEDS: Gabapentin 300 MG CAP PO SCH (21:32)
[2022-01-27] MEDS: Rosuvastatin 20 MG TAB PO SCH (21:33)
[2022-01-28] MEDS: Lactated Ringer's 1,000 ML IV SCH ×3 (00:19→18:11)
[2022-01-28] MEDS: Meropenem 1 GM in Sodium Chloride 0.9% 100 ML IVPB SCH ×3 (02:13→18:19)
[2022-01-28 07:36] LABS: #Eosinphils 0.3 thou/uL (0.0-0.7); #Lymphocytes 1.2 thou/uL (1.20-3.40); #Monocytes 0.5 thou/uL (0.11-0.59); #Neutrophils 4.1 thou/uL (1.40-6.50); %Basophils 0.6 % (0.0-1.0); %Eosinophils 4.5 % (0.0-10.0); %Lymphocytes 19.8 % (21.0-51.0); %Monocytes 7.9 % (0.0-10.0); %Neutrophils 67.3 % (42.0-75.0); Hemoglobin 10.4 g/dL (12.0-16.0); Mean Corpuscular HGB CONC 32.2 g/dL (32.0-36.0); Mean Corpuscular Hemoglobin 22.8 pg (27.0-31.0); Mean Corpuscular Volume 70.9 fL (78.0-98.0); Platelet Count 215 thou/uL (130-400); RBC Distribution Width 15.9 % (11.5-14.5); Red Blood Cell (RBC) Count 4.54 mill/uL (4.20-5.40); White Blood Cell (WBC) Count 6.1 thou/uL (4.8-10.8)
[2022-01-28 07:52] LABS: Anion Gap 12 mmol/L (10-20); BUN (Urea Nitrogen) 9 mg/dL (9.8-20.1); Calc. Creatinine Clearance 80 mL/min (70-130); Calcium 9.1 mg/dL (7.8-10.44); Carbon Dioxide 24 mmol/L (23-31); Chloride 108 mmol/L (98-107); Estimated GFR 90; Glucose 88 mg/dL (83-110); Sodium 140 mmol/L (136-145)
[2022-01-28] MEDS: Aspirin 81 mg Enteric Coated Tablet PO SCH (08:39)
[2022-01-28] MEDS: Pramipexole Di-HCl 1 MG TAB PO SCH ×2 (08:39→21:39)
[2022-01-28] MEDS: Enoxaparin Sodium 40 MG/0.4 ML SYRINGE SC SCH (08:39)
[2022-01-28] MEDS: busPIRone HCl 5 MG TAB PO SCH ×3 (08:39→21:40)
[2022-01-28] MEDS: Zinc Sulfate 220 MG CAP PO SCH (08:39)
[2022-01-28] MEDS: Dicyclomine 10 MG CAP PO SCH ×4 (08:40→21:39)
[2022-01-28] MEDS: Ascorbic Acid 500 mg Chewable Tablet PO SCH (08:40)
[2022-01-28] MEDS: Donepezil HCl 5 MG TAB PO SCH (08:40)
[2022-01-28] MEDS: Famotidine 20 MG TAB PO SCH ×2 (08:40→21:40)
[2022-01-28] MEDS: Lisinopril 5 MG TAB PO SCH (08:40)
[2022-01-28] MEDS: Saccharomyces boulardii 250 MG CAP PO SCH (08:40)
[2022-01-28] MEDS: Cholecalciferol (Vitamin D3) 400 UNITS TAB PO SCH (08:40)
[2022-01-28] MEDS: levETIRAcetam 500 mg/5 ml Oral Solution PO SCH ×2 (08:41→21:40)
[2022-01-28] MEDS: Clopidogrel Bisulfate 75 MG TAB PO SCH (08:41)
[2022-01-28] MEDS: Polyethylene Glycol OPTH DROP 15 ML BOT EA EYE SCH (08:41)
[2022-01-28] MEDS: Gabapentin 300 MG CAP PO SCH (21:39)
[2022-01-28] MEDS: Rosuvastatin 20 MG TAB PO SCH (21:39)
[2022-01-29] MEDS: Ascorbic Acid 500 mg Chewable Tablet PO SCH (09:27)
[2022-01-29] MEDS: Donepezil HCl 5 MG TAB PO SCH (09:27)
[2022-01-29] MEDS: busPIRone HCl 5 MG TAB PO SCH ×3 (09:27→22:01)
[2022-01-29] MEDS: Pramipexole Di-HCl 1 MG TAB PO SCH ×2 (09:27→22:00)
[2022-01-29] MEDS: Saccharomyces boulardii 250 MG CAP PO SCH (09:27)
[2022-01-29] MEDS: Lisinopril 5 MG TAB PO SCH (09:27)
[2022-01-29] MEDS: Cefdinir 300 MG CAP PO SCH ×2 (09:27→22:00)
[2022-01-29] MEDS: Clopidogrel Bisulfate 75 MG TAB PO SCH (09:27)
[2022-01-29] MEDS: Aspirin 81 mg Enteric Coated Tablet PO SCH (09:27)
[2022-01-29] MEDS: Zinc Sulfate 220 MG CAP PO SCH (09:27)
[2022-01-29] MEDS: Famotidine 20 MG TAB PO SCH ×2 (09:27→22:01)
[2022-01-29] MEDS: Cholecalciferol (Vitamin D3) 400 UNITS TAB PO SCH (09:27)
[2022-01-29] MEDS: Enoxaparin Sodium 40 MG/0.4 ML SYRINGE SC SCH (09:27)
[2022-01-29] MEDS: Dicyclomine 10 MG CAP PO SCH ×4 (09:27→22:02)
[2022-01-29] MEDS: Polyethylene Glycol OPTH DROP 15 ML BOT EA EYE SCH (09:28)
[2022-01-29] MEDS: levETIRAcetam 500 mg/5 ml Oral Solution PO SCH ×2 (09:28→22:02)
[2022-01-29] MEDS: Lactated Ringer's 1,000 ML IV SCH ×2 (14:12→22:04)
[2022-01-29] MEDS: Rosuvastatin 20 MG TAB PO SCH (22:01)
[2022-01-29] MEDS: Gabapentin 300 MG CAP PO SCH (22:02)
[2022-01-30] MEDS: levETIRAcetam 500 mg/5 ml Oral Solution PO SCH ×2 (08:16→20:32)
[2022-01-30] MEDS: Zinc Sulfate 220 MG CAP PO SCH (08:17)
[2022-01-30] MEDS: Enoxaparin Sodium 40 MG/0.4 ML SYRINGE SC SCH (08:17)
[2022-01-30] MEDS: Clopidogrel Bisulfate 75 MG TAB PO SCH (08:17)
[2022-01-30] MEDS: Donepezil HCl 5 MG TAB PO SCH (08:18)
[2022-01-30] MEDS: Saccharomyces boulardii 250 MG CAP PO SCH (08:18)
[2022-01-30] MEDS: Lisinopril 5 MG TAB PO SCH (08:18)
[2022-01-30] MEDS: Pramipexole Di-HCl 1 MG TAB PO SCH ×2 (08:18→20:33)
[2022-01-30] MEDS: Ascorbic Acid 500 mg Chewable Tablet PO SCH (08:18)
[2022-01-30] MEDS: busPIRone HCl 5 MG TAB PO SCH ×3 (08:22→20:33)
[2022-01-30] MEDS: Aspirin 81 mg Enteric Coated Tablet PO SCH (08:22)
[2022-01-30] MEDS: Dicyclomine 10 MG CAP PO SCH ×4 (08:22→20:33)
[2022-01-30] MEDS: Famotidine 20 MG TAB PO SCH ×2 (08:22→20:32)
[2022-01-30] MEDS: Cefdinir 300 MG CAP PO SCH ×2 (08:22→20:33)
[2022-01-30] MEDS: Cholecalciferol (Vitamin D3) 400 UNITS TAB PO SCH (08:23)
[2022-01-30] MEDS: Polyethylene Glycol OPTH DROP 15 ML BOT EA EYE SCH (08:23)
[2022-01-30] MEDS: Lactated Ringer's 1,000 ML IV SCH (11:01)
[2022-01-30] MEDS ORDERED: Mag-Al Plus 1200 MG/1200 MG/120 MG/30 ML UDCUP PO SCH (11:06)
[2022-01-30] MEDS ORDERED: Bisacodyl 10 MG SUPP PR SCH (11:15)
[2022-01-30] MEDS: Rosuvastatin 20 MG TAB PO SCH (20:33)
[2022-01-30] MEDS: Gabapentin 300 MG CAP PO SCH (20:33)
[2022-01-31] MEDS: levETIRAcetam 500 mg/5 ml Oral Solution PO SCH ×2 (08:13→20:45)
[2022-01-31] MEDS: Pramipexole Di-HCl 1 MG TAB PO SCH ×2 (08:17→20:48)
[2022-01-31] MEDS: Clopidogrel Bisulfate 75 MG TAB PO SCH (08:17)
[2022-01-31] MEDS: Dicyclomine 10 MG CAP PO SCH ×4 (08:17→20:48)
[2022-01-31] MEDS: Cefdinir 300 MG CAP PO SCH ×2 (08:17→20:48)
[2022-01-31] MEDS: Enoxaparin Sodium 40 MG/0.4 ML SYRINGE SC SCH (08:17)
[2022-01-31] MEDS: Zinc Sulfate 220 MG CAP PO SCH (08:17)
[2022-01-31] MEDS: busPIRone HCl 5 MG TAB PO SCH ×3 (08:17→20:48)
[2022-01-31] MEDS: Famotidine 20 MG TAB PO SCH ×2 (08:17→20:47)
[2022-01-31] MEDS: Cholecalciferol (Vitamin D3) 400 UNITS TAB PO SCH (08:17)
[2022-01-31] MEDS: Lisinopril 5 MG TAB PO SCH (08:17)
[2022-01-31] MEDS: Saccharomyces boulardii 250 MG CAP PO SCH (08:17)
[2022-01-31] MEDS: Ascorbic Acid 500 mg Chewable Tablet PO SCH (08:17)
[2022-01-31] MEDS: Polyethylene Glycol OPTH DROP 15 ML BOT EA EYE SCH (08:18)
[2022-01-31] MEDS: Aspirin 81 mg Enteric Coated Tablet PO SCH (08:18)
[2022-01-31] MEDS: Donepezil HCl 5 MG TAB PO SCH (08:18)
[2022-01-31] MEDS: Rosuvastatin 20 MG TAB PO SCH (20:47)
[2022-01-31] MEDS: Gabapentin 300 MG CAP PO SCH (20:47)
[2022-02-01] MEDS: levETIRAcetam 500 mg/5 ml Oral Solution PO SCH ×2 (08:58→22:33)
[2022-02-01] MEDS: Aspirin 81 mg Enteric Coated Tablet PO SCH (09:00)
[2022-02-01] MEDS: busPIRone HCl 5 MG TAB PO SCH ×3 (09:00→22:35)
[2022-02-01] MEDS: Enoxaparin Sodium 40 MG/0.4 ML SYRINGE SC SCH (09:00)
[2022-02-01] MEDS: Dicyclomine 10 MG CAP PO SCH ×4 (09:00→22:34)
[2022-02-01] MEDS: Donepezil HCl 5 MG TAB PO SCH (09:00)
[2022-02-01] MEDS: Famotidine 20 MG TAB PO SCH ×2 (09:00→22:34)
[2022-02-01] MEDS: Saccharomyces boulardii 250 MG CAP PO SCH (09:00)
[2022-02-01] MEDS: Ascorbic Acid 500 mg Chewable Tablet PO SCH (09:00)
[2022-02-01] MEDS: Zinc Sulfate 220 MG CAP PO SCH (09:01)
[2022-02-01] MEDS: Clopidogrel Bisulfate 75 MG TAB PO SCH (09:01)
[2022-02-01] MEDS: Cholecalciferol (Vitamin D3) 400 UNITS TAB PO SCH (09:01)
[2022-02-01] MEDS: Polyethylene Glycol OPTH DROP 15 ML BOT EA EYE SCH (09:01)
[2022-02-01] MEDS: Pramipexole Di-HCl 1 MG TAB PO SCH ×2 (09:01→22:33)
[2022-02-01] MEDS: Lisinopril 5 MG TAB PO SCH (09:01)
[2022-02-01] MEDS: Cefdinir 300 MG CAP PO SCH ×2 (09:01→22:33)
[2022-02-01] MEDS: Gabapentin 300 MG CAP PO SCH (22:33)
[2022-02-01] MEDS: Rosuvastatin 20 MG TAB PO SCH (22:33)
[2022-02-02] MEDS: Saccharomyces boulardii 250 MG CAP PO SCH (09:29)
[2022-02-02] MEDS: Zinc Sulfate 220 MG CAP PO SCH (09:29)
[2022-02-02] MEDS: Pramipexole Di-HCl 1 MG TAB PO SCH ×2 (09:29→22:01)
[2022-02-02] MEDS: busPIRone HCl 5 MG TAB PO SCH ×3 (09:30→22:01)
[2022-02-02] MEDS: Donepezil HCl 5 MG TAB PO SCH (09:30)
[2022-02-02] MEDS: Lisinopril 5 MG TAB PO SCH (09:30)
[2022-02-02] MEDS: Ascorbic Acid 500 mg Chewable Tablet PO SCH (09:30)
[2022-02-02] MEDS: Famotidine 20 MG TAB PO SCH ×2 (09:30→22:01)
[2022-02-02] MEDS: levETIRAcetam 500 mg/5 ml Oral Solution PO SCH ×2 (09:30→22:03)
[2022-02-02] MEDS: Aspirin 81 mg Enteric Coated Tablet PO SCH (09:30)
[2022-02-02] MEDS: Clopidogrel Bisulfate 75 MG TAB PO SCH (09:30)
[2022-02-02] MEDS: Dicyclomine 10 MG CAP PO SCH ×4 (09:30→22:02)
[2022-02-02] MEDS: Cefdinir 300 MG CAP PO SCH ×2 (09:30→22:02)
[2022-02-02] MEDS: Cholecalciferol (Vitamin D3) 400 UNITS TAB PO SCH (09:30)
[2022-02-02] MEDS: Enoxaparin Sodium 40 MG/0.4 ML SYRINGE SC SCH (09:31)
[2022-02-02] MEDS: Polyethylene Glycol OPTH DROP 15 ML BOT EA EYE SCH (09:31)
[2022-02-02 15:06] LABS: Actual Bicarbonate (HCO3a) 23.8 mEq/L (22-28); Base Excess (BEa) 0.3 mEq/L (-2.0 to +3.0); CO2 Tension 34.3 mmHg (35.0-45.0); Calcium, Ionized (arterial) 1.21 mmol/L (1.12-1.30); Carboxyhemoglobin (COHb) 0.2 gm% (0.0-3.0); Hemoglobin (Hb) 10.2 g/dL (12.0-16.0); O2 Tension (PaO2), arterial 83.8 mmHg (> 70.0); Potassium - ABG Lab 3.52 mmol/L (3.70-5.30); pH, Arterial 7.46 (7.35-7.45)
[2022-02-02 15:07] LABS: Puncture Site LBA
[2022-02-02 15:08] LABS: ALV-art Gradient 23.055 mmHg (0-20)
[2022-02-02 15:39] LABS: #Eosinphils 0.3 thou/uL (0.0-0.7); #Lymphocytes 1.5 thou/uL (1.20-3.40); #Monocytes 0.6 thou/uL (0.11-0.59); #Neutrophils 6.5 thou/uL (1.40-6.50); %Basophils 0.2 % (0.0-1.0); %Monocytes 7.1 % (0.0-10.0); %Neutrophils 72.8 % (42.0-75.0); Hemoglobin 9.9 g/dL (12.0-16.0); Mean Corpuscular HGB CONC 31.6 g/dL (32.0-36.0); Mean Corpuscular Hemoglobin 22.5 pg (27.0-31.0); Mean Corpuscular Volume 71.4 fL (78.0-98.0); Mean Platelet Volume 9.8 fL (7.4-10.4); Platelet Count 206 thou/uL (130-400); Red Blood Cell (RBC) Count 4.39 mill/uL (4.20-5.40); White Blood Cell (WBC) Count 8.9 thou/uL (4.8-10.8)
[2022-02-02 16:00] LABS: Troponin I Less than 0.010 ng/mL (< 0.028)
[2022-02-02 19:08] LABS: Troponin I Less than 0.010 ng/mL (< 0.028)
[2022-02-02] MEDS: Gabapentin 300 MG CAP PO SCH (22:02)
[2022-02-02] MEDS: Rosuvastatin 20 MG TAB PO SCH (22:02)
[2022-02-02] MEDS: Acetaminophen 325 MG TAB PO PRN (22:03)
[2022-02-03] MEDS: Lisinopril 5 MG TAB PO SCH (09:11)
[2022-02-03] MEDS: Famotidine 20 MG TAB PO SCH ×2 (09:11→20:42)
[2022-02-03] MEDS: Pramipexole Di-HCl 1 MG TAB PO SCH ×2 (09:11→20:41)
[2022-02-03] MEDS: levETIRAcetam 500 mg/5 ml Oral Solution PO SCH ×2 (09:11→20:40)
[2022-02-03] MEDS: Saccharomyces boulardii 250 MG CAP PO SCH (09:11)
[2022-02-03] MEDS: Zinc Sulfate 220 MG CAP PO SCH (09:11)
[2022-02-03] MEDS: Cholecalciferol (Vitamin D3) 400 UNITS TAB PO SCH (09:12)
[2022-02-03] MEDS: Donepezil HCl 5 MG TAB PO SCH (09:12)
[2022-02-03] MEDS: Dicyclomine 10 MG CAP PO SCH ×4 (09:12→20:41)
[2022-02-03] MEDS: busPIRone HCl 5 MG TAB PO SCH ×3 (09:12→20:41)
[2022-02-03] MEDS: Polyethylene Glycol OPTH DROP 15 ML BOT EA EYE SCH (09:12)
[2022-02-03] MEDS: Ascorbic Acid 500 mg Chewable Tablet PO SCH (09:12)
[2022-02-03] MEDS: Aspirin 81 mg Enteric Coated Tablet PO SCH (09:12)
[2022-02-03] MEDS: Enoxaparin Sodium 40 MG/0.4 ML SYRINGE SC SCH (09:12)
[2022-02-03] MEDS: Cefdinir 300 MG CAP PO SCH ×2 (09:12→20:41)
[2022-02-03] MEDS: Clopidogrel Bisulfate 75 MG TAB PO SCH (09:12)
[2022-02-03] MEDS: Rosuvastatin 20 MG TAB PO SCH (20:41)
[2022-02-03] MEDS: Acetaminophen 325 MG TAB PO PRN (20:42)
[2022-02-03] MEDS: Gabapentin 300 MG CAP PO SCH (20:42)
[2022-02-03 21:05] LABS: Bilirubin Negative (Negative); Blood, Urine Negative (Negative); Clarity Clear (Clear); Glucose, Urine (Dipstick) Greater than 1000 mg/dL (Negative); Ketone, Urine Negative (Negative); Leukocyte Negative Leu/uL (Negative); Nitrite Negative (Negative); Protein, Urine (Dipstick) Negative (Neg-Trace); RBC/HPF 0-3 HPF (0-3); Specific Gravity, Urine 1.042 (1.002-1.036); Urobilinogen Normal mg/dL (Less than 2); WBC/HPF 0-3 HPF (0-3); Yeast-Budding Rare HPF (None Seen); pH, Urine 6.5 (5.0-9.0)
[2022-02-03 21:15] LABS: Bacteria/HPF Rare-Few HPF (None Seen)
[2022-02-03 21:17] LABS: Urine Culture Reflex No No
[2022-02-04 08:21] VITALS: BP 133/74; TEMP 97.3
[2022-02-04] MEDS: Aspirin 81 mg Enteric Coated Tablet PO SCH (09:15)
[2022-02-04] MEDS: Cefdinir 300 MG CAP PO SCH (09:15)
[2022-02-04] MEDS: Cholecalciferol (Vitamin D3) 400 UNITS TAB PO SCH (09:15)
[2022-02-04] MEDS: Pramipexole Di-HCl 1 MG TAB PO SCH (09:15)
[2022-02-04] MEDS: Dicyclomine 10 MG CAP PO SCH (09:15)
[2022-02-04] MEDS: Donepezil HCl 5 MG TAB PO SCH (09:15)
[2022-02-04] MEDS: Ascorbic Acid 500 mg Chewable Tablet PO SCH (09:15)
[2022-02-04] MEDS: Clopidogrel Bisulfate 75 MG TAB PO SCH (09:15)
[2022-02-04] MEDS: Famotidine 20 MG TAB PO SCH (09:15)
[2022-02-04] MEDS: Zinc Sulfate 220 MG CAP PO SCH (09:16)
[2022-02-04] MEDS: Lisinopril 5 MG TAB PO SCH (09:16)
[2022-02-04] MEDS: levETIRAcetam 500 mg/5 ml Oral Solution PO SCH (09:16)
[2022-02-04] MEDS: Enoxaparin Sodium 40 MG/0.4 ML SYRINGE SC SCH (09:16)
[2022-02-04] MEDS: Saccharomyces boulardii 250 MG CAP PO SCH (09:16)
[2022-02-04] MEDS: Polyethylene Glycol OPTH DROP 15 ML BOT EA EYE SCH (09:16)
[2022-02-04] MEDS: busPIRone HCl 5 MG TAB PO SCH (09:16)
== END 2022-02-04 12:16 | disposition home or self-care (01) | DRG 689 ==
LOC: ERS 14:21 → 2NO 17:46 → OBSVTOIN 01-27 10:40 → T4-A 01-27 20:54
PROVIDERS: ADMIT Internal Medicine; ATTEND Internal Medicine
PROC: 8E0ZXY6 Isolation (ICD-10-PCS; principal; 2022-01-27)
DX: N30.00 Acute cystitis without hematuria (principal); Z66 Do not resuscitate; U07.1 COVID-19; G93.41 Metabolic encephalopathy; J12.82 Pneumonia due to coronavirus disease 2019; I69.351 Hemiplegia and hemiparesis following cerebral infarction affecting right dominant side; Z16.24 Resistance to multiple antibiotics; J98.11 Atelectasis; E88.09 Other disorders of plasma-protein metabolism, not elsewhere classified; B96.20 Unspecified Escherichia coli [E. coli] as the cause of diseases classified elsewhere; Z96.653 Presence of artificial knee joint, bilateral; F41.9 Anxiety disorder, unspecified; F32.A Depression, unspecified; M54.9 Dorsalgia, unspecified; Z96.641 Presence of right artificial hip joint; G89.4 Chronic pain syndrome; I25.10 Atherosclerotic heart disease of native coronary artery without angina pectoris; E66.9 Obesity, unspecified; F03.90 Unspecified dementia, unspecified severity, without behavioral disturbance, psychotic disturbance, mood disturbance, and anxiety; G40.909 Epilepsy, unspecified, not intractable, without status epilepticus; I95.9 Hypotension, unspecified; Z88.2 Allergy status to sulfonamides; Z88.8 Allergy status to other drugs, medicaments and biological substances; Z88.1 Allergy status to other antibiotic agents; Z88.5 Allergy status to narcotic agent; Z91.013 Allergy to seafood; Z79.899 Other long term (current) drug therapy; Z79.82 Long term (current) use of aspirin; Z79.02 Long term (current) use of antithrombotics/antiplatelets; I69.398 Other sequelae of cerebral infarction; Z90.49 Acquired absence of other specified parts of digestive tract; Z90.710 Acquired absence of both cervix and uterus; Z87.440 Personal history of urinary (tract) infections; Z86.718 Personal history of other venous thrombosis and embolism
CPT/HCPCS: 36415; 36416; 36600; 51701; 70450; 71045; 71275; 74018; 80048; 80053; 80306; 80307; 81001; 81003; 81015; 82805; 83036; 83605; 83735; 83880; 84443; 84484; 85025; 87040; 87077; 87086; 87149; 87186; 93005; 93010; 96365; 96372; 96375; 96376; C9113; G0378; J1650; J1956; J2185; J2405; J3490; J7050; J7120; U0002

== ENCOUNTER 2023-02-12 13:33 | Observation (INO) | payer MEDICARE ==
[2023-02-12 14:05] LABS: #Basophils 0.1 thou/uL (0.0-0.2); #Eosinphils 0.2 thou/uL (0.0-0.7); #Monocytes 0.6 thou/uL (0.11-0.59); #Neutrophils 6.6 thou/uL (1.40-6.50); %Eosinophils 1.9 % (0.0-10.0); %Lymphocytes 11.1 % (21.0-51.0); %Neutrophils 78.5 % (42.0-75.0); Hematocrit 34.1 % (36.0-47.0); Hemoglobin 10.1 g/dL (12.0-16.0); Mean Corpuscular HGB CONC 29.6 g/dL (32.0-36.0); Mean Corpuscular Hemoglobin 23.5 pg (27.0-31.0); Mean Corpuscular Volume 79.5 fl (78.0-98.0); Mean Platelet Volume 10.9 fL (7.4-10.4); Platelet Count 258 10x3/uL (130-400); RBC Distribution Width 14.8 % (11.5-14.5); Red Blood Cell (RBC) Count 4.29 mill/uL (4.20-5.40); White Blood Cell (WBC) Count 8.4 10x3/uL (4.8-10.8)
[2023-02-12 14:21] LABS: Troponin I Less than 0.010 ng/mL (< 0.028)
[2023-02-12 14:22] LABS: ALT (SGPT) 16 U/L (8-55); AST (SGOT) 33 U/L (5-34); Albumin 3.9 g/dL (3.4-4.8); Alkaline Phosphatase 85 U/L (40-110); Anion Gap 14 mmol/L (10-20); BUN (Urea Nitrogen) 15 mg/dL (9.8-20.1); Bilirubin, Total 0.2 mg/dL (0.2-1.2); Calc. Creatinine Clearance 0 mL/min (70-130); Carbon Dioxide 20 mmol/L (23-31); Chloride 110 mmol/L (98-107); Estimated GFR 58; Globulin 3.5 g/dL (2.4-3.5); Glucose 122 mg/dL (83-110); Potassium 4.8 mmol/L (3.5-5.1); Protein, Total 7.4 g/dL (5.8-8.1); Sodium 139 mmol/L (136-145)
[2023-02-12 15:07] LABS: Bacteria/HPF None Seen HPF (None Seen); Bilirubin Negative (Negative); Blood, Urine Negative (Negative); CAUTI Indications for Culture Alt mental st,lethar; Clarity Clear (Clear); Glucose, Urine (Dipstick) Greater than 1000 mg/dL (Negative); Ketone, Urine Negative (Negative); Leukocyte Negative Leu/uL (Negative); Nitrite Negative (Negative); Protein, Urine (Dipstick) Negative (Neg-Trace); RBC/HPF 0-3 HPF (0-3); Specific Gravity, Urine 1.028 (1.002-1.036); Squamous Epithelial 0-3 HPF (0-3); Urobilinogen Normal mg/dL (Less than 2); WBC/HPF 0-3 HPF (0-3); pH, Urine 5.5 (5.0-9.0)
[2023-02-12 15:08] LABS: Urine Culture Reflex No No
[2023-02-12] MEDS ORDERED: Acetaminophen 325 MG TAB PO PRN (16:55)
[2023-02-12] MEDS ORDERED: Ondansetron PF 4 MG/2 ML Vial IVP PRN (18:45)
[2023-02-12] MEDS ORDERED: Ondansetron ODT 4 MG TAB SL PRN (18:45)
[2023-02-12 19:54] VITALS: BMI 31.8
[2023-02-12] MEDS: Pramipexole Di-HCl 1 MG TAB PO SCH (21:47)
[2023-02-12] MEDS: Azelastine 137 MCG/NASAL Spray 30 ML NS SCH (21:47)
[2023-02-12] MEDS: busPIRone HCl 5 MG TAB PO SCH (21:47)
[2023-02-13] MEDS: busPIRone HCl 5 MG TAB PO SCH ×2 (08:30→13:59)
[2023-02-13] MEDS: Pramipexole Di-HCl 1 MG TAB PO SCH (08:30)
[2023-02-13] MEDS: Azelastine 137 MCG/NASAL Spray 30 ML NS SCH ×2 (08:31→08:38)
[2023-02-13] MEDS ORDERED: Clopidogrel Bisulfate 75 MG TAB PO SCH (09:00)
[2023-02-13] MEDS ORDERED: Aspirin Chewable 81 MG TAB PO SCH (09:00)
[2023-02-13] MEDS ORDERED: Donepezil HCl 5 MG TAB PO SCH (09:00)
[2023-02-13] MEDS ORDERED: Non-Formulary Item 1 EACH (Carvedilol [Coreg] 12.5 MG Tab) PO SCH (09:00)
[2023-02-13] MEDS ORDERED: Non-Formulary Item 1 EACH (Rabeprazole Sodium [Rabeprazole Sodium] 20 MG Tablet.Dr) PO SCH (09:00)
[2023-02-13] MEDS ORDERED: levETIRAcetam 500 mg/5 ml Oral Solution PO SCH (09:00)
[2023-02-13] MEDS ORDERED: Carvedilol 6.25 MG TAB PO SCH (09:00)
[2023-02-13] MEDS ORDERED: Pramipexole Di-HCl 1 MG TAB PO SCH (09:00)
[2023-02-13] MEDS ORDERED: Lisinopril 5 MG TAB PO SCH (09:00)
[2023-02-13] MEDS ORDERED: Zinc Sulfate 220 MG CAP PO SCH (09:00)
[2023-02-13] MEDS ORDERED: Saccharomyces boulardii 250 MG CAP PO SCH (09:00)
[2023-02-13] MEDS ORDERED: Famotidine 20 MG TAB PO SCH (09:00)
[2023-02-13] MEDS: Dicyclomine 10 MG CAP PO SCH ×2 (09:37→13:59)
[2023-02-13 10:12] VITALS: TEMP 97.6
[2023-02-13 11:42] VITALS: BP 152/87
[2023-02-13] MEDS ORDERED: Rosuvastatin 20 MG TAB PO SCH (21:00)
[2023-02-13] MEDS ORDERED: GABAPENTIN 300 MG PO SCH (21:00)
[2023-02-13] MEDS ORDERED: Gabapentin 300 MG CAP PO SCH (21:00)
== END 2023-02-13 15:28 ==
LOC: ERS 13:33 → 2SE 16:37
PROVIDERS: ADMIT Internal Medicine; ATTEND Internal Medicine
DX: M54.9 Dorsalgia, unspecified (principal); G89.29 Other chronic pain; E78.5 Hyperlipidemia, unspecified; Z79.82 Long term (current) use of aspirin; Z79.899 Other long term (current) drug therapy; Z86.73 Personal history of transient ischemic attack (TIA), and cerebral infarction without residual deficits; Z96.653 Presence of artificial knee joint, bilateral; Z96.641 Presence of right artificial hip joint; Z90.710 Acquired absence of both cervix and uterus; Z95.0 Presence of cardiac pacemaker; Z88.0 Allergy status to penicillin; Z88.1 Allergy status to other antibiotic agents; Z88.2 Allergy status to sulfonamides; Z88.6 Allergy status to analgesic agent; Z88.8 Allergy status to other drugs, medicaments and biological substances
CPT/HCPCS: 51701; 70450; 71045; 80053; 81001; 82962; 84484; 85025; 93005; 96372; 97530; 99285; G0378 ×3; 36416; J1650

== ENCOUNTER 2024-04-10 12:10 | Outpatient (CLI) | payer MEDICARE | END 2024-04-10 12:11 | disposition home or self-care (01) | LOC: EEG 12:10 | PROVIDERS: ATTEND Psychiatry & Neurology Neurology | DX: R56.9 Unspecified convulsions (principal) | CPT/HCPCS: 95816 ==